=== PATIENT | male | born 1930 | race Caucasian/White ===

== ENCOUNTER 2017-09-04 14:32 | Inpatient (IN) | payer BC, OTHER ==
[2017-09-04 14:52] VITALS: BMI 30.4
--- NOTE | 2017-09-04 15:28 | PDOC ---
History of Present Illness - General History Source: Patient Exam Limitations: No Limitations - History of Present Illness Initial Comments: 09/04/17 15:39 The patient is a 87 year old male with a significant PMH of hypertension and non -insulin dependent diabetes who was brought via EMS to the emergency department with cough, generalized weakness, and one episode of vomit. As per EMS, the patient was seen at the doctor's office today for his persistent cough and was afebrile there. EMS reports the patient had one episode of non-bloody, non- bilious vomit when they were taking the patient home and decided to bring him to the ER instead. The patient has a rectal temp of 103 here in the ER. History is limited from patient. The patient denies chest pain, shortness of breath, headache and dizziness. Denies fever, chills, nausea, diarrhea and constipation. Denies dysuria, frequency, urgency and hematuria. Allergies: NKA Past surgical history: None reported. Social history: No reported alcohol, drug, or cigarette use. <Lina Martin - Last Filed: 09/04/17 18:19> - History of Present Illness Initial Comments: 09/04/17 19:03 87 years old past medical history significant for hypertension non-insulin dependent diabetes presents to the emergency department with fever tachycardia altered mental status Sepsis workup initiated reevaluation urinalysis grossly positive Reevaluation 6 PM patient became transiently hypotensive 30 mL/kg IV fluids ordered Antibiotic coverage broadened to Zosyn We will admit the [facility] on telemetry for further management. <Joseph Barclay - Last Filed: 09/04/17 19:04> - General Chief Complaint: Weakness Stated Complaint: WEAKNESS FLU SYMTOMS VOMITED ONCE Time Seen by Provider: 09/04/17 15:02 Past History <Lina Martin - Last Filed: 09/04/17 18:19> - Past Medical History Anemia: No Asthma: No Cancer: No Cardiac Disorders: Yes CVA: No COPD: No CHF: No Dementia: No Diabetes: Yes (7 YEARS, MEDS X 3 YEARS) GI Disorders: No Disorders: No HTN: Yes Hypercholesterolemia: No Liver Disease: No Seizures: No Thyroid Disease: No Other medical history: PROSTATE - Surgical History Abdominal Surgery: No Appendectomy: No Cardiac Surgery: No Cholecystectomy: No Lung Surgery: No Neurologic Surgery: No Orthopedic Surgery: No - Immunization History Immunization Up to Date: No - Suicide/Smoking/Psychosocial Hx Smoking Status: No Smoking History: Never smoked Have you smoked in the past 12 months: No Number of Cigarettes Smoked Daily: 0 Information on smoking cessation initiated: No Hx Alcohol Use: No Drug/Substance Use Hx: No Substance Use Type: None Hx Substance Use Treatment: No <Joseph Barclay - Last Filed: 09/04/17 19:04> - Past Medical History Allergies/Adverse Reactions: Allergies Allergy/AdvReac Type Severity Reaction Status Date / Time No Known Allergies Allergy Verified 09/04/17 14:34 Home Medications: Ambulatory Orders Amlodipine Besylate 10 mg PO DAILY 09/04/17 Carvedilol 6.25 mg PO BID 09/04/17 Metformin HCl 500 mg PO BID 09/04/17 Omeprazole 20 mg PO DAILY 09/04/17 Tamsulosin HCl 0.4 mg PO DAILY 09/04/17 Valsartan/Hydrochlorothiazide [Valsartan-Hctz 160-12.5 mg Tab] 1 each PO DAILY 09/04/17 Review of Systems - Review of Systems Able to Perform ROS?: Yes Comments:: 09/04/17 15:32 ROS: A complete review of 10 out of 10 review of systems is taken and is negative apart from what is previously mentioned below and in the HPI. <Lina Martin - Last Filed: 09/04/17 18:19> *Physical Exam - Vital Signs Last Vital Signs Temp Pulse Resp BP Pulse Ox 103 F H 118 H 20 126/103 96 09/04/17 14:33 09/04/17 14:33 09/04/17 14:33 09/04/17 14:33 09/04/17 14:33 - Physical Exam Comments: 09/04/17 15:33 Vitals: Triage vital signs reviewed General Appearance: No acute distress, well nourished, well developed Head: Atraumatic Eyes: Pupils equal reactive round, extraocular movement intact Ears: TM's normal bilaterally Nose: Nares patent bilaterally; no nasal congestion Throat: Posterior oropharynx without erythema, mucous membranes moist Neck: Supple; No nuchal rigidity Chest Wall: Nontender Cardiac: Regular rate and rhythm, no murmurs, no rubs, no gallops Lungs: Clear to auscultation bilateral, good air movement bilaterally Abdomen: Soft, nondistended, normal bowel sounds, nontender to palpation Extremities: Full range of motion to all extremities, no cyanosis, clubbing, or edema Skin: Warm and dry, no rashes or lesions, no rash, no petechiae Neuro: AOX3; Cranial Nerves 2-12 grossly intact, Strength intact to all extremities, Sensation intact to all extremities. Psych: Normal mood, normal affect <Lina Martin - Last Filed: 09/04/17 18:19> - Vital Signs Last Vital Signs Temp Pulse Resp BP Pulse Ox 103 F H 118 H 20 126/103 96 09/04/17 14:33 09/04/17 14:33 09/04/17 14:33 09/04/17 14:33 09/04/17 14:33 <Joseph Barclay - Last Filed: 09/04/17 19:04> ED Treatment Course - LABORATORY CBC & Chemistry Diagram: 09/04/17 16:10 09/04/17 16:10 <Lina Martin - Last Filed: 09/04/17 18:19> - LABORATORY CBC & Chemistry Diagram: 09/04/17 16:10 09/04/17 16:10 <Joseph Barclay - Last Filed: 09/04/17 19:04> *DC/Admit/Observation/Transfer - Attestations Scribe Attestion: 09/04/17 15:33 Documentation prepared by Lina Martin, acting as medical practice manager for Joseph Barclay MD. <Lina Martin - Last Filed: 09/04/17 18:19> - Discharge Dispostion Admit: Yes <Joseph Barclay - Last Filed: 09/04/17 19:04> Diagnosis at time of Disposition: Sepsis Qualifiers: Sepsis type: sepsis due to unspecified organism Qualified Code(s): A41.9 - Sepsis, unspecified organism UTI (urinary tract infection) Qualifiers: Urinary tract infection type: site unspecified Hematuria presence: without hematuria Qualified Code(s): N39.0 - Urinary tract infection, site not specified - Discharge Dispostion Condition at time of disposition: Fair
[2017-09-04 16:24] LABS: EOS % 0.1 % (0-4.5)
[2017-09-04 16:30] LABS: BASO % 0.2 % (0-2.0); HEMATOCRIT 33.1 % (35.4-49); HEMOGLOBIN 11.6 GM/dl (11.7-16.9); LYMPH % 4.2 % (8-40); MCH 30.5 pg (25.7-33.7); MEAN CELL VOLUME 87.1 fl (80-96); MEAN PLT VOLUME 8.4 fl (7.5-11.1); MONO % 4.6 % (3.8-10.2); NEUT % 90.9 % (42.8-82.8); PLATELET COUNT 224 K/MM3 (134-434); RDW 13.8 % (11.9-15.9); WHITE BLOOD COUNT 11.6 K/mm3 (4.0-10.8)
[2017-09-04] MEDS ORDERED: ACETAMINOPHEN 1000 MG/100 ML VIAL (NON FORMULARY) IVPB ONE (16:31)
[2017-09-04] MEDS ORDERED: SODIUM CHLORIDE 0.9% 500 ML INFUS.BAG IV ONE (16:31)
[2017-09-04] MEDS ORDERED: ACETAMINOPHEN INJECTION 100 ML IVPB ONE (16:35)
[2017-09-04 16:43] LABS: ALBUMIN 2.6 g/dl (3.5-5.0); ALK PHOS 105 U/L (32-92); ANION GAP 10 (8-16); BILIRUBIN,TOTAL 1.3 mg/dl (0.2-1.0); BLOOD UREA NITROGEN 26 mg/dl (7-18); CALCIUM 8.2 mg/dl (8.4-10.2); CHLORIDE 98 mmol/L (98-107); CO2 21 mmol/L (22-28); CREATININE 1.2 mg/dl (0.6-1.3); GLUCOSE,RANDOM 214 mg/dl (74-106); POTASSIUM 3.6 mmol/L (3.5-5.1); SGOT/AST 18 U/L (10-42); SGPT/ALT 17 U/L (10-40); SODIUM 129 mmol/L (136-145); TOT PROT 6.8 g/dl (6.4-8.3)
[2017-09-04 17:09] LABS: PH,URINE 5.5 (4.5-8); URINE BILIRUBIN Negative (NEGATIVE); URINE GLUCOSE (UA) Negative (NEGATIVE); URINE KETONE Negative (NEGATIVE); URINE NITRITE Negative (NEGATIVE); URINE UROBILINOGEN 0.2 (0.2-1.0)
[2017-09-04 17:10] LABS: ACTIVATED PTT 25.4 SECONDS (24.0-38.9)
[2017-09-04 17:10] LABS: URINE APPEARANCE SL CLOUDY; URINE BLOOD 3+ (NEGATIVE); URINE COLOR YELLOW; URINE LEUK ESTERASE 2+ (NEGATIVE); URINE PROTEIN 1+ (NEGATIVE)
[2017-09-04 17:15] LABS: INR 1.25 (0.82-1.09); PROTHROMBIN TIME (PATIENT) 13.9 SEC (10.2-13.0)
[2017-09-04 17:24] LABS: EPI CELLS MODERATE /HPF; URINE RBC 40-60 /hpf (0-3); URINE WBC 40-60 (0-2)
[2017-09-04 17:25] LABS: AMORP URATES FEW /hpf (NONE SEEN); URINE BACTERIA MODERATE /hpf (NEGATIVE)
[2017-09-04 17:28] LABS: VENOUS PC02 33.1 mmHg (38-52); VENOUS PH 7.49 (7.32-7.42)
[2017-09-04] MEDS ORDERED: AZITHROMYCIN IVPB 500 MG in DEXTROSE 5%-WATER - 250 ML IVPB ONE (17:42)
[2017-09-04] MEDS ORDERED: AZITHROMYCIN 500 MG VIAL IVPB ONE (17:54)
[2017-09-04] MEDS ORDERED: PIPERACILLIN/TAZOBACTAM 4.5 GM VIAL IVPB ONE ×2 (18:12→18:38)
[2017-09-04] MEDS ORDERED: SODIUM CHLORIDE 0.9% 1000 ML INFUS.BAG IV STA (18:12)
[2017-09-04] MEDS ORDERED: LIDOCAINE HCL 2% (20ML MULTI-DOSE VIAL) NR ONE (21:26)
[2017-09-04 22:14] LABS: HEMOGLOBIN 10.1 GM/dl (11.7-16.9); MCH 31.1 pg (25.7-33.7); MCHC 35.9 g/dl (32.0-35.9); MEAN CELL VOLUME 86.7 fl (80-96); MEAN PLT VOLUME 8.9 fl (7.5-11.1); PLATELET COUNT 142 K/MM3 (134-434); RBC 3.23 M/mm3 (4.00-5.60); RDW 13.5 % (11.9-15.9); WHITE BLOOD COUNT 12.4 K/mm3 (4.0-10.8)
[2017-09-04] MEDS ORDERED: NOREPINEPHRINE BITARTRATE 4 MG/4 ML ML IV ONE ×2 (22:28→22:41)
[2017-09-04] MEDS: NOREPINEPHRINE BITARTRATE 8,000 MCG in DEXTROSE 5%-WATER - 492 ML IV ONE ×2 (22:30→22:45)
--- NOTE | 2017-09-04 23:14 | PDOC ---
History of Present Illness - General Chief Complaint: Weakness Stated Complaint: WEAKNESS FLU SYMTOMS VOMITED ONCE Time Seen by Provider: 09/04/17 15:02 Past History - Past Medical History Allergies/Adverse Reactions: Allergies Allergy/AdvReac Type Severity Reaction Status Date / Time No Known Allergies Allergy Verified 09/04/17 14:34 Home Medications: Ambulatory Orders Amlodipine Besylate 10 mg PO DAILY 09/04/17 Carvedilol 6.25 mg PO BID 09/04/17 Metformin HCl 500 mg PO BID 09/04/17 Omeprazole 20 mg PO DAILY 09/04/17 Tamsulosin HCl 0.4 mg PO DAILY 09/04/17 Valsartan/Hydrochlorothiazide [Valsartan-Hctz 160-12.5 mg Tab] 1 each PO DAILY 09/04/17 Anemia: No Asthma: No Cancer: No Cardiac Disorders: Yes CVA: No COPD: No CHF: No Dementia: No Diabetes: Yes (7 YEARS, MEDS X 3 YEARS) GI Disorders: No Disorders: No HTN: Yes Hypercholesterolemia: No Liver Disease: No Seizures: No Thyroid Disease: No Other medical history: PROSTATE - Surgical History Abdominal Surgery: No Appendectomy: No Cardiac Surgery: No Cholecystectomy: No Lung Surgery: No Neurologic Surgery: No Orthopedic Surgery: No - Immunization History Immunization Up to Date: No - Suicide/Smoking/Psychosocial Hx Smoking Status: No Smoking History: Never smoked Have you smoked in the past 12 months: No Number of Cigarettes Smoked Daily: 0 Information on smoking cessation initiated: No Hx Alcohol Use: No Drug/Substance Use Hx: No Substance Use Type: None Hx Substance Use Treatment: No *Physical Exam - Vital Signs Last Vital Signs Temp Pulse Resp BP Pulse Ox 98.1 F 90 24 91/66 100 09/04/17 21:18 09/04/17 23:07 09/04/17 23:07 09/04/17 23:07 09/04/17 23:07 Procedures - Consent Consent obtained: Written, From Patient - Central Line Central Line Lumen: triple Central Line Position: internal jugular (R) Anesthesia: 2% Lidocaine Amount of anesthesia (ccs): 6 Complications: none Post Central Line Insertion: sutured, good blood return, position confirmed w/ CXR ED Treatment Course - LABORATORY CBC & Chemistry Diagram: 09/04/17 21:45 09/04/17 16:10 - ADDITIONAL ORDERS Additional order review: Laboratory Results 09/04/17 09/04/17 09/04/17 16:20 16:10 16:10 PT with INR INR PTT (Actin FS) VBG pH POC VBG pCO2 POC VBG pO2 Mixed VBG HCO3 Sodium Potassium Chloride Carbon Dioxide Anion Gap BUN Creatinine Creat Clearance w eGFR Random Glucose Lactic Acid 1.9 Cancelled Calcium Total Bilirubin AST ALT Alkaline Phosphatase Troponin I Total Protein Albumin Urine Color Yellow Urine Appearance Sl cloudy Urine pH 5.5 Ur Specific [place] 1.015 Urine Protein 1+ H Urine Glucose (UA) Negative Urine Ketones Negative Urine Blood 3+ H Urine Nitrite Negative Urine Bilirubin Negative Urine Urobilinogen 0.2 Ur Leukocyte Esterase 2+ H Urine RBC 40-60 Urine WBC 40-60 Ur Epithelial Cells Moderate Amorphous Urates Few Urine Bacteria Moderate 09/04/17 09/04/17 09/04/17 16:10 16:10 16:10 PT with INR 13.9 H INR 1.25 H PTT (Actin FS) 25.4 L VBG pH 7.49 H POC VBG pCO2 33.1 L POC VBG pO2 97.0 H Mixed VBG HCO3 24.8 Sodium 129 L Potassium 3.6 Chloride 98 Carbon Dioxide 21 L Anion Gap 10 BUN 26 H Creatinine 1.2 Creat Clearance w eGFR 57.41 Random Glucose 214 H Lactic Acid Calcium 8.2 L Total Bilirubin 1.3 H AST 18 ALT 17 Alkaline Phosphatase 105 H Troponin I Total Protein 6.8 Albumin 2.6 L Urine Color Urine Appearance Urine pH Ur Specific [place] Urine Protein Urine Glucose (UA) Urine Ketones Urine Blood Urine Nitrite Urine Bilirubin Urine Urobilinogen Ur Leukocyte Esterase Urine RBC Urine WBC Ur Epithelial Cells Amorphous Urates Urine Bacteria 09/04/17 15:35 PT with INR INR PTT (Actin FS) VBG pH POC VBG pCO2 POC VBG pO2 Mixed VBG HCO3 Sodium Potassium Chloride Carbon Dioxide Anion Gap BUN Creatinine Creat Clearance w eGFR Random Glucose Lactic Acid Calcium Total Bilirubin AST ALT Alkaline Phosphatase Troponin I 0.01 Total Protein Albumin Urine Color Urine Appearance Urine pH Ur Specific [place] Urine Protein Urine Glucose (UA) Urine Ketones Urine Blood Urine Nitrite Urine Bilirubin Urine Urobilinogen Ur Leukocyte Esterase Urine RBC Urine WBC Ur Epithelial Cells Amorphous Urates Urine Bacteria 09/04/17 09/04/17 21:45 16:10 RBC 3.23 L 3.80 L MCV 86.7 87.1 MCHC 35.9 35.0 RDW 13.5 13.8 MPV 8.9 8.4 Neutrophils % 90.9 H Lymphocytes % 4.2 L Monocytes % 4.6 Eosinophils % 0.1 Basophils % 0.2 - RADIOLOGY Radiology Studies Ordered: Category Date Time Status CHEST X-RAY PORTABLE* [RAD] Stat Radiology 09/04/17 21:54 Completed - Medications Given in the ED: ED Medications Discontinued Medications Generic Name Dose Route Start Last Admin Trade Name Freq PRN Reason Stop Dose Admin Acetaminophen 1,000 mg 09/04/17 16:31 09/04/17 16:39 Ofirmev Injection - IVPB 09/04/17 16:32 1,000 mg ONCE ONE Administration Azithromycin 500 mg/ Dextrose 250 mls @ 250 mls/hr 09/04/17 17:42 09/04/17 18 :00 IVPB 09/04/17 18:41 250 mls/hr ONCE ONE Administration Piperacillin Sod/Tazobactam Sod 4.5 gm 09/04/17 18:12 09/04/17 19:09 Zosyn - IVPB 09/04/17 18:13 4.5 gm ONCE ONE Administration Sodium Chloride 1,000 ml 09/04/17 16:31 09/04/17 16:34 Normal Saline - IV 09/04/17 16:32 1,000 ml ONCE ONE Administration Sodium Chloride 2,722 ml 09/04/17 18:12 09/04/17 18:33 Normal Saline - 30 ml/kg (2722 ml) 09/04/17 18:13 2,722 ml IV Administration ONCE STA Medical Decision Making - Critical Care Time Total Critical Care Time (minutes): 90 Critical Care Statement: The care of this patient involved high complexity decision making to prevent further life threatening deterioration of the patient 's condition and/or to evaluate & treat vital organ system(s) failure or risk of failure. - Medical Decision Making 09/04/17 23:51 Received on signout. Chart review. 3lNS with persistently low BP. IVC plump. Add vanco. R IJ placed without complications, US guided. D/w [facility] of medicine and [facility] CCM. *DC/Admit/Observation/Transfer Diagnosis at time of Disposition: Sepsis Qualifiers: Sepsis type: sepsis due to unspecified organism Qualified Code(s): A41.9 - Sepsis, unspecified organism UTI (urinary tract infection) Qualifiers: Urinary tract infection type: site unspecified Hematuria presence: without hematuria Qualified Code(s): N39.0 - Urinary tract infection, site not specified - Discharge Dispostion Condition at time of disposition: Fair Admit: Yes - Referrals - Patient Instructions - Post Discharge Activity
--- NOTE | 2017-09-05 03:18 | CONSULT ---
Consult Consult Specialty:: CCM Referred by:: Ning Reason for Consultation:: Severe Sepsis - History of Present Illness Chief Complaint: dysuria, weakness History of Present Illness: Briefly Mr Byrd is a very pleasant 87 yo man with PMHx of HTN, NIDDM, BPH with recent hx of influenza and increased urinary symptoms of urgency and difficulty with micturation in last few weeks who presented to ED today with fever, hypotension and + UA c/w urosepsis. Pt lives at home with spouse and one of his 5 children. He is still working and independent in [employer]. In last 48hrs he relates significant fatigue and required his son to " drag him to bathroom". He went to PMD office, was hypotensive but afebrile. PMD called in a script for abx and sent him home. Pt however was becoming progressively weaker and came to ED via EMS instead. In ED pt was febrile to 103, hypotensive with SBP raul in 70s. He was fluid resuscitated, hendricks cxl and started on Pip/Kartki. Labs notable for + UA with 40-50 wbc +LE. White count was 12k Neut predominant, Na of 129. Lactate and troponin were negative. Tbili slightly elevated at 1.3. Pt initially responsive to fluid but with SBP drops into 80s. RIJ TLC was placed and levophed was started. Transferred from [facility] to [facility] for further care. Dose of Vancomycin given prior to transfer. - History Source History Provided By: Patient, Medical Record Limitations to Obtaining History: Poor Historian - Past Medical History Cardio/Vascular: Yes: HTN Renal/: Yes: BPH, UTI Endocrine: Yes: Diabetes Mellitus (NIDM) - Past Surgical History Past Surgical History: Yes: None - Alcohol/Substance Use Hx Alcohol Use: No History of Substance Use: reports: None - Smoking History Smoking history: Never smoked Have you smoked in the past 12 months: No Aproximately how many cigarettes per day: 0 - Social History Usual Living Arrangement: With Spouse ADL: Independent History of Recent Travel: No Home Medications - Allergies Allergies/Adverse Reactions: Allergies Allergy/AdvReac Type Severity Reaction Status Date / Time No Known Allergies Allergy Verified 09/04/17 14:34 - Home Medications Home Medications: Ambulatory Orders Amlodipine Besylate 10 mg PO DAILY 09/04/17 Carvedilol 6.25 mg PO BID 09/04/17 Metformin HCl 500 mg PO BID 09/04/17 Omeprazole 20 mg PO DAILY 09/04/17 Tamsulosin HCl 0.4 mg PO DAILY 09/04/17 Valsartan/Hydrochlorothiazide [Valsartan-Hctz 160-12.5 mg Tab] 1 each PO DAILY 09/04/17 Family Disease History - Family Disease History Family History: Unremarkable Review of Systems Findings/Remarks: 10 pt review negative except as per HPI Physical Exam Vital Signs: Vital Signs Temperature 98.1 F 09/04/17 21:18 Pulse Rate 83 09/05/17 01:54 Respiratory Rate 17 09/05/17 01:54 Blood Pressure 95/58 09/05/17 01:54 O2 Sat by Pulse Oximetry (%) 100 09/05/17 01:54 Constitutional: Yes: Well Nourished, No Distress, Calm Eyes: Yes: Conjunctiva Clear, EOM Intact, PERRL HENT: Yes: Atraumatic, Normocephalic. No: Nasal Congestion, Rhinnorhea Neck: Yes: Supple, Trachea Midline. No: Lymphadenopathy Cardiovascular: Yes: Regular Rate and Rhythm, S1, S2. No: Murmur Respiratory: Yes: Regular, CTA Bilaterally. No: Accessory Muscle Use Gastrointestinal: Yes: Normal Bowel Sounds, Soft ...Rectal Exam: Yes: Deferred Renal/: Yes: WNL. No: Urethral Discharge Breast(s): Yes: WNL Musculoskeletal: Yes: WNL Edema: LLE: Trace, RLE: Trace Peripheral Pulses WNL: Yes Integumentary: Yes: WNL Neurological: Yes: WNL, Alert, Oriented, Cran Nerves II-XII Intact ...Motor Strength: WNL Psychiatric: Yes: WNL, Alert, Oriented Labs: CBC, BMP 09/04/17 21:45 09/04/17 16:10 Imaging - Results Chest X-ray: Report Reviewed, Image Reviewed EKG: Image Reviewed (Sinus tach, 1st degree AV bloock, TW flattening in V1-2. intervals WNL otherwise. Occ pvc) Problem List - Problems (1) Sepsis Code(s): A41.9 - SEPSIS, UNSPECIFIED ORGANISM Qualifiers: Sepsis type: sepsis due to unspecified organism Qualified Code(s): A41.9 - Sepsis, unspecified organism (2) UTI (urinary tract infection) Code(s): N39.0 - URINARY TRACT INFECTION, SITE NOT SPECIFIED Qualifiers: Urinary tract infection type: site unspecified Hematuria presence: without hematuria Qualified Code(s): N39.0 - Urinary tract infection, site not specified Assessment/Plan PULM/CCM seen and examined in ICU A/ 87 y/o man with hx of BPH, HTN, IDDM now with UTI and severe sepsis P/ -cont P/T, Vanco--> ID to see, likely only needs ceftriaxone as no recent hospitalization or hx of MDR -cont fluid resus, can check CVP, goal 8-12 -hold all anti-htn -FS and tight glucose control -diabetic diet -SQH for DVT -no indication for GI proph -cont ICU care until off vasopressor William Knutson ACN [id number] Critical Care Time/MDM Note Total Critical Care Time: 35 Critical Care Statement: The care of this patient involved high complexity decision making to prevent further life threatening deterioration of the patient 's condition and/or to evaluate & treat vital organ system(s) failure or risk of failure.
[2017-09-05] MEDS ORDERED: LACTATED RINGERS SOLUTION 1000 ML INFUS.BAG IV ONE (03:49)
--- NOTE | 2017-09-05 03:52 | HP ---
CHIEF COMPLAINT: urinary frequency PCP: HISTORY OF PRESENT ILLNESS: The patient is an 87 yo m w/ PMH Diabetes, HTN, CAD, BPH who comes into the ED c /o urinary frequency. Patient has had increased urinary frequency for the past 2 weeks and states that he has been unable to void completely once he goes to the bathroom. The patient's symptoms gradually worsened and became associated with generalized weakness, causing his to see his doctor, who prescribed him a PO antibiotic and noticed that his blood pressure was low. 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 In the ER, he was noted to have a rectal temp to 103. He became progressively hypotensive despite fluid resuscitation, requiring norepinephrine to sustain his blood pressure. ER course was notable for: (1) WBC 12.4, LA 1.9 (2) Cr 1.2 (3) Recent Travel: none PAST MEDICAL HISTORY: diabetes HTN CAD PAST SURGICAL HISTORY: none Social History: Smoking: denies Alcohol: denies Drugs: denies Family History: Non-contributory Allergies No Known Allergies Allergy (Verified 09/04/17 14:34) HOME MEDICATIONS: Home Medications Medication Instructions Recorded Amlodipine Besylate 10 mg PO DAILY 09/04/17 Carvedilol 6.25 mg PO BID 09/04/17 Metformin HCl 500 mg PO BID 09/04/17 Omeprazole 20 mg PO DAILY 09/04/17 Tamsulosin HCl 0.4 mg PO DAILY 09/04/17 Valsartan/Hydrochlorothiazide 1 each PO DAILY 09/04/17 [Valsartan-Hctz 160-12.5 mg Tab] REVIEW OF SYSTEMS CONSTITUTIONAL: Absent: fever, chills, diaphoresis, generalized weakness, malaise, loss of appetite, weight change HEENT: Absent: rhinorrhea, nasal congestion, throat pain, throat swelling, difficulty swallowing, mouth swelling, ear pain, eye pain, visual changes CARDIOVASCULAR: Absent: chest pain, syncope, palpitations, irregular heart rate, lightheadedness , peripheral edema RESPIRATORY: Absent: cough, shortness of breath, dyspnea with exertion, orthopnea, wheezing, stridor, hemoptysis GASTROINTESTINAL: Absent: abdominal pain, abdominal distension, nausea, vomiting, diarrhea, constipation, melena, hematochezia GENITOURINARY: Absent: dysuria, frequency, urgency, hesitancy, hematuria, flank pain, genital pain MUSCULOSKELETAL: Absent: myalgia, arthralgia, joint swelling, back pain, neck pain SKIN: Absent: rash, itching, pallor HEMATOLOGIC/IMMUNOLOGIC: Absent: easy bleeding, easy bruising, lymphadenopathy, frequent infections ENDOCRINE: Absent: unexplained weight gain, unexplained weight loss, heat intolerance, cold intolerance NEUROLOGIC: Absent: headache, focal weakness or paresthesias, dizziness, unsteady gait, seizure, mental status changes, bladder or bowel incontinence PSYCHIATRIC: Absent: anxiety, depression, suicidal or homicidal ideation, hallucinations. PHYSICAL EXAMINATION Vital Signs - 24 hr 09/04/17 09/04/17 09/04/17 14:33 15:45 16:22 Temperature 103 F H Pulse Rate 118 H Pulse Rate [ Apical] Pulse Rate [ 114 H 113 H Left Radial] Respiratory 20 24 20 Rate Blood Pressure 126/103 Blood Pressure [Left Arm] Blood Pressure 120/72 140/53 [Right Arm] O2 Sat by Pulse 96 98 Oximetry (%) 09/04/17 09/04/17 09/04/17 17:30 18:30 18:35 Temperature 101.2 F H Pulse Rate 86 Pulse Rate [ Apical] Pulse Rate [ 93 H 100 H Left Radial] Respiratory 22 20 20 Rate Blood Pressure 84/54 Blood Pressure [Left Arm] Blood Pressure 98/51 80/50 [Right Arm] O2 Sat by Pulse 97 100 100 Oximetry (%) 09/04/17 09/04/17 09/04/17 18:45 19:54 21:03 Temperature Pulse Rate Pulse Rate [ Apical] Pulse Rate [ 87 79 100 H Left Radial] Respiratory 20 20 18 Rate Blood Pressure Blood Pressure [Left Arm] Blood Pressure 83/50 73/46 81/54 [Right Arm] O2 Sat by Pulse 100 100 100 Oximetry (%) 09/04/17 09/04/17 09/04/17 21:18 22:06 22:30 Temperature 98.1 F Pulse Rate 85 Pulse Rate [ 82 Apical] Pulse Rate [ Left Radial] Respiratory 14 Rate Blood Pressure 62/46 Blood Pressure [Left Arm] Blood Pressure 90/58 [Right Arm] O2 Sat by Pulse 99 Oximetry (%) 09/04/17 09/04/17 09/04/17 22:45 23:07 23:22 Temperature Pulse Rate 78 Pulse Rate [ 90 76 Apical] Pulse Rate [ Left Radial] Respiratory 24 18 Rate Blood Pressure 80/42 Blood Pressure [Left Arm] Blood Pressure 91/66 98/64 [Right Arm] O2 Sat by Pulse 100 100 Oximetry (%) 09/05/17 09/05/17 09/05/17 00:26 01:00 01:54 Temperature Pulse Rate 74 Pulse Rate [ 71 73 83 Apical] Pulse Rate [ 78 Left Radial] Respiratory 17 21 17 Rate Blood Pressure 77/48 Blood Pressure 93/57 95/58 [Left Arm] Blood Pressure 77/48 [Right Arm] O2 Sat by Pulse 100 100 100 Oximetry (%) 09/05/17 03:01 Temperature 98.2 F Pulse Rate 96 H Pulse Rate [ Apical] Pulse Rate [ Left Radial] Respiratory 20 Rate Blood Pressure 99/55 Blood Pressure [Left Arm] Blood Pressure [Right Arm] O2 Sat by Pulse 100 Oximetry (%) GENERAL: Awake, alert, and fully oriented, in no acute distress. HEAD: Normal with no signs of trauma. EYES: Pupils equal, round and reactive to light, extraocular movements intact, sclera anicteric, conjunctiva clear. No lid lag. EARS, NOSE, THROAT: Ears normal, nares patent, oropharynx clear without exudates. Moist mucous membranes. NECK: Normal range of motion, supple without lymphadenopathy, JVD, or masses. LUNGS: Breath sounds equal, clear to auscultation bilaterally. No wheezes, and no crackles. No accessory muscle use. HEART: Regular rate and rhythm, normal S1 and S2 without murmur, rub or gallop. ABDOMEN: Soft, nontender, not distended, normoactive bowel sounds, no guarding, no rebound, no masses. No hepatomegaly or splenomegaly. LOWER EXTREMITIES: 2+ pulses, warm, well-perfused. No calf tenderness. No peripheral edema. NEUROLOGICAL: Cranial nerves II-X intact. Normal speech. Normal gait. PSYCHIATRIC: Cooperative. Good eye contact. Appropriate mood and affect. SKIN: Warm, dry, normal turgor, no rashes or lesions noted, normal capillary refill. Laboratory Results - last 24 hr 09/04/17 09/04/17 09/04/17 15:35 16:10 16:10 WBC 11.6 H RBC 3.80 L Hgb 11.6 L Hct 33.1 L MCV 87.1 MCH 30.5 MCHC 35.0 RDW 13.8 Plt Count 224 MPV 8.4 Neutrophils % 90.9 H Lymphocytes % 4.2 L Monocytes % 4.6 Eosinophils % 0.1 Basophils % 0.2 PT with INR 13.9 H INR 1.25 H PTT (Actin FS) 25.4 L VBG pH POC VBG pCO2 POC VBG pO2 Mixed VBG HCO3 Sodium Potassium Chloride Carbon Dioxide Anion Gap BUN Creatinine Creat Clearance w eGFR Random Glucose Lactic Acid Calcium Total Bilirubin AST ALT Alkaline Phosphatase Troponin I 0.01 Total Protein Albumin Urine Color Urine Appearance Urine pH Ur Specific [place] Urine Protein Urine Glucose (UA) Urine Ketones Urine Blood Urine Nitrite Urine Bilirubin Urine Urobilinogen Ur Leukocyte Esterase Urine RBC Urine WBC Ur Epithelial Cells Amorphous Urates Urine Bacteria 09/04/17 09/04/17 09/04/17 16:10 16:10 16:10 WBC RBC Hgb Hct MCV MCH MCHC RDW Plt Count MPV Neutrophils % Lymphocytes % Monocytes % Eosinophils % Basophils % PT with INR INR PTT (Actin FS) VBG pH 7.49 H POC VBG pCO2 33.1 L POC VBG pO2 97.0 H Mixed VBG HCO3 24.8 Sodium 129 L Potassium 3.6 Chloride 98 Carbon Dioxide 21 L Anion Gap 10 BUN 26 H Creatinine 1.2 Creat Clearance w eGFR 57.41 Random Glucose 214 H Lactic Acid Cancelled Calcium 8.2 L Total Bilirubin 1.3 H AST 18 ALT 17 Alkaline Phosphatase 105 H Troponin I Total Protein 6.8 Albumin 2.6 L Urine Color Urine Appearance Urine pH Ur Specific [place] Urine Protein Urine Glucose (UA) Urine Ketones Urine Blood Urine Nitrite Urine Bilirubin Urine Urobilinogen Ur Leukocyte Esterase Urine RBC Urine WBC Ur Epithelial Cells Amorphous Urates Urine Bacteria 09/04/17 09/04/17 09/04/17 16:10 16:20 21:45 WBC 12.4 H RBC 3.23 L Hgb 10.1 L D Hct 28.0 L D MCV 86.7 MCH 31.1 MCHC 35.9 RDW 13.5 Plt Count 142 D MPV 8.9 Neutrophils % Lymphocytes % Monocytes % Eosinophils % Basophils % PT with INR INR PTT (Actin FS) VBG pH POC VBG pCO2 POC VBG pO2 Mixed VBG HCO3 Sodium Potassium Chloride Carbon Dioxide Anion Gap BUN Creatinine Creat Clearance w eGFR Random Glucose Lactic Acid 1.9 Calcium Total Bilirubin AST ALT Alkaline Phosphatase Troponin I Total Protein Albumin Urine Color Yellow Urine Appearance Sl cloudy Urine pH 5.5 Ur Specific [place] 1.015 Urine Protein 1+ H Urine Glucose (UA) Negative Urine Ketones Negative Urine Blood 3+ H Urine Nitrite Negative Urine Bilirubin Negative Urine Urobilinogen 0.2 Ur Leukocyte Esterase 2+ H Urine RBC 40-60 Urine WBC 40-60 Ur Epithelial Cells Moderate Amorphous Urates Few Urine Bacteria Moderate 09/04/17 22:20 WBC RBC Hgb Hct MCV MCH MCHC RDW Plt Count MPV Neutrophils % Lymphocytes % Monocytes % Eosinophils % Basophils % PT with INR INR PTT (Actin FS) VBG pH POC VBG pCO2 POC VBG pO2 Mixed VBG HCO3 Sodium Potassium Chloride Carbon Dioxide Anion Gap BUN Creatinine Creat Clearance w eGFR Random Glucose Lactic Acid 1.1 Calcium Total Bilirubin AST ALT Alkaline Phosphatase Troponin I Total Protein Albumin Urine Color Urine Appearance Urine pH Ur Specific [place] Urine Protein Urine Glucose (UA) Urine Ketones Urine Blood Urine Nitrite Urine Bilirubin Urine Urobilinogen Ur Leukocyte Esterase Urine RBC Urine WBC Ur Epithelial Cells Amorphous Urates Urine Bacteria ASSESSMENT/PLAN: The patient is an 87 yo f w/ PMH HTN, DM, CAD, BPH who is being admitted septic shock #Septic shock likely 2/2 UTI -s/p Zosyn, vanco in ED -c/w zosyn -ID consult -renal/ bladder US -RUQ us r/o hepatobiliary source -c/w home flomax -norepi @ 4 -insert marcelino -monitor BP #Diabetes -BGM ACHS -ISS ACHS #HTN -hold antihypotensives #FEN -no fluids indicated -lytes WNL -diabetic diet #Prophy -Hep SQ 5ku TID #Dispo -admit to ICU Visit type - Emergency Visit Emergency Visit: Yes ED Registration Date: 09/05/17 Care time: The patient presented to the Emergency Department on the above date and was hospitalized for further evaluation of their emergent condition. - New Patient This patient is new to me today: Yes Date on this admission: 09/05/17 - Critical Care Critical Care patient: Yes Total Critical Care Time (in minutes): 40 Critical Care Statement: The care of this patient involved high complexity decision making to prevent further life threatening deterioration of the patient 's condition and/or to evaluate & treat vital organ system(s) failure or risk of failure. Hospitalist Screening - Colonoscopy Questionnaire Colonoscopy Questionnaire: Colonoscopy Questionnaire - Patient: 50 - 75 years old and never had a screening colonoscopy: Unknown History of colon or rectal polyps, or CA: Unknown History of IBD, Crohn's disease or UC: Unknown History of abdominal radiation therapy as a child: Unknown - Relative: 1 with colon or rectal CA, or polyps at age 60 or younger: Unknown Colon or rectal CA diagnosed at age 45 or younger: Unknown Multiple relatives with colon or rectal CA: Unknown - Outcome: Screening Result: Negative Screen
[2017-09-05] MEDS ORDERED: PIPERACILLIN/TAZOB 3.375 GM/50 ML PRE-DOCKED IVPB STA (05:06)
[2017-09-05] MEDS ORDERED: PIPERACILLIN/TAZOB 3.375 GM 3.375 GM in DEXTROSE 5%-WATER - 50 ML IVPB ONE (05:45)
[2017-09-05] MEDS: HEPARIN NA (PORCINE) 5,000 UNITS/ML 1ML VIAL SQ SCH ×3 (06:09→21:57)
[2017-09-05] MEDS: INSULIN SLIDING SCALE (NOVOLOG) 1 VIAL SQ SCH ×4 (06:10→22:01)
--- NOTE | 2017-09-05 06:27 | PN ---
Teaching Attending Note Name of Resident: Bryan Shearer ATTENDING PHYSICIAN STATEMENT I saw and evaluated the patient. Chart, data, imaging reviewed. I reviewed the resident's note and discussed the case with the resident. I agree with the resident's findings and plan as documented. SUBJECTIVE: 87 yo man with PMHx of HTN, NIDDM, BPH with recent hx of influenza and increased urinary symptoms of urgency and difficulty with micturation in last few weeks who presented to ED with weakness, fever, urinary hesitation. Patient was seen in PMD office and given script for PO antibiotic just prior to presenting to ER but did not take antibiotic. In [facility] ER, patient given IV bolus fluid resuscitation but did not respond so right IJ central line was placed, started on levophed and transferred to ICU [facility] [place]. Urine , blood cx drawn, vancomycin, zosyn were given empirically. OBJECTIVE: Last Vital Signs Temp Pulse Resp BP Pulse Ox 98.2 F 98 H 20 111/48 100 09/05/17 03:01 09/05/17 04:00 09/05/17 04:00 09/05/17 04:00 09/05/17 03:01 general- nad, aaox3, no resp distress heent -moist oral mucosa, no sinus tenderness neck -supple, no jvd cv -s1+s2+ rrr chest- cta b/l abdomen- soft, nt, BS+ skin- no rashes noted Abnormal Lab Results 09/04/17 09/04/17 09/04/17 16:10 16:10 16:10 WBC 11.6 H RBC 3.80 L Hgb 11.6 L Hct 33.1 L Neutrophils % 90.9 H Lymphocytes % 4.2 L PT with INR 13.9 H INR 1.25 H PTT (Actin FS) 25.4 L VBG pH 7.49 H POC VBG pCO2 33.1 L POC VBG pO2 97.0 H Sodium Carbon Dioxide BUN Random Glucose Calcium Total Bilirubin Alkaline Phosphatase Albumin Urine Protein Urine Blood Ur Leukocyte Esterase 09/04/17 09/04/17 09/04/17 16:10 16:20 21:45 WBC 12.4 H RBC 3.23 L Hgb 10.1 L D Hct 28.0 L D Neutrophils % Lymphocytes % PT with INR INR PTT (Actin FS) VBG pH POC VBG pCO2 POC VBG pO2 Sodium 129 L Carbon Dioxide 21 L BUN 26 H Random Glucose 214 H Calcium 8.2 L Total Bilirubin 1.3 H Alkaline Phosphatase 105 H Albumin 2.6 L Urine Protein 1+ H Urine Blood 3+ H Ur Leukocyte Esterase 2+ H ASSESSMENT AND PLAN: #87yo man with septic shock secondary to UTI requiring pressor support with levophed. On empiric antibiotic therapy with vancomycin and pip/tazo. Likely BPH contributing to sepsis. Lactate was wnl. Tbili and alk phos were elevated and biliary source infection should also be ruled out although less likely. -f/u blood and urine cultures -marcelino catheter placement -monitor i/o -continue zosyn 3.375g IV q6hrs -continue pressor support -Hepatobiliary U/S -renal/bladder U/S -ID consult -continue flomax for bph -DVT ppx- heparin sc #diet - 2g Na diet
[2017-09-05 06:31] LABS: BASO % 0.2 % (0-2.0); HEMATOCRIT 27.1 % (35.4-49); HEMOGLOBIN 9.3 GM/dL (11.7-16.9); LYMPH % 15.2 % (8-40); MCH 30.3 pg (25.7-33.7); MCHC 34.3 g/dl (32.0-35.9); MEAN CELL VOLUME 88.3 fl (80-96); MEAN PLT VOLUME 8.6 fl (7.5-11.1); MONO % 10.3 % (3.8-10.2); NEUT % 73.3 % (42.8-82.8); PLATELET COUNT 207 K/MM3 (134-434); RBC 3.07 M/mm3 (4.00-5.60); RDW 14.5 % (11.9-15.9); WHITE BLOOD COUNT 10.3 K/mm3 (4.0-10.0)
[2017-09-05 06:47] LABS: INR 1.17 (0.82-1.09); PROTHROMBIN TIME (PATIENT) 13.2 SEC (9.98-11.88)
[2017-09-05 07:02] LABS: ALBUMIN 1.8 g/dl (3.4-5.0); ANION GAP 9 (8-16); BLOOD UREA NITROGEN 22 mg/dL (7-18); CALCIUM 7.1 mg/dL (8.5-10.1); CHLORIDE 105 mmol/L (98-107); CO2 24 mmol/L (21-32); CREATININE 1.1 mg/dL (0.7-1.3); GLUCOSE,RANDOM 153 mg/dL (74-106); MAGNESIUM 1.8 mg/dL (1.8-2.4); PHOSPHOROUS 2.7 mg/dL (2.5-4.9); POTASSIUM 3.5 mmol/L (3.5-5.1); SGOT/AST 18 U/L (15-37); SGPT/ALT 15 U/L (12-78); SODIUM 138 mmol/L (136-145)
[2017-09-05 07:04] LABS: ALK PHOS 87 U/L (45-117); BILIRUBIN,TOTAL 0.8 mg/dL (0.2-1.0); TOT PROT 5.5 g/dl (6.4-8.2)
--- NOTE | 2017-09-05 08:17 | PN ---
Physical Exam: SUBJECTIVE: Briefly 87yo M with hx of HTN, Type 2 DM, BPH and recent flu illness presented to the hospital with reports of increased urinary frequency and difficulty initiating voiding found to have a UTI. Pt was feverish up to 103 and hypotensive on initial presentation at [facility] which was refractory to fluid resuscitation with 3L NS. Pt had R IJ placed and was started on Levophed. Pt has a and also lives with one of his children. At baseline patient is independent with ADLs. Pt prior to ER admission went to PMD and was given home antibiotics and had his home BP medications held. Pt had one episode of vomiting and then EMS was called. Currently pt has been off pressors for about 2 hours and is doing well. He denies any fever/chills since admission, nausea/vomiting, SOB, CP/discomfort, palpitations, abdominal pain, suprapubic pain, back pain. OBJECTIVE: Vital Signs Period Temp Pulse Resp BP Sys/Case Pulse Ox Last 24 Hr 98.1 F-103 F 71-118 14-24 62-140/42-103 96-100 GENERAL: NAD, awake, alert, oriented x3, on NC HEENT: NC/AT, EOMI, JOHN, No JVD, sclera anicteric, moist mucosa LUNGS: CTA bilaterally, no wheezes, no crackles, no accessory muscle use. HEART: RRR, S1, S2 without murmur ABDOMEN: Soft, nontender, nondistended, normoactive bowel sounds, no guarding, negative Wagner's sign, no suprapubic tenderness, no hepatomegaly, no masses. EXTREMITIES: 2+ DP pulses, warm, well-perfused, no edema. NEUROLOGICAL: Cranial nerves II through XII grossly intact. Strength 5/5 grossly , Sensastion intact throughout. Normal speech, gait not observed. PSYCH: Pleasant, normal mood, normal affect. SKIN: Warm, dry, normal turgor, no rashes or lesions noted Laboratory Results - last 24 hr 09/05/17 09/05/17 05:30 05:30 WBC 10.3 H RBC 3.07 L Hgb 9.3 L Hct 27.1 L MCV 88.3 MCH 30.3 MCHC 34.3 RDW 14.5 Plt Count 207 MPV 8.6 Neutrophils % 73.3 Lymphocytes % 15.2 Monocytes % 10.3 H Eosinophils % 1.0 Basophils % 0.2 PT with INR 13.20 H INR 1.17 H PTT (Actin FS) VBG pH POC VBG pCO2 POC VBG pO2 Mixed VBG HCO3 Sodium Potassium Chloride Carbon Dioxide Anion Gap BUN Creatinine Creat Clearance w eGFR POC Glucometer Random Glucose Lactic Acid Calcium Phosphorus Magnesium Total Bilirubin AST ALT Alkaline Phosphatase Troponin I Total Protein Albumin Urine Color Urine Appearance Urine pH Ur Specific [place] Urine Protein Urine Glucose (UA) Urine Ketones Urine Blood Urine Nitrite Urine Bilirubin Urine Urobilinogen Ur Leukocyte Esterase Urine RBC Urine WBC Ur Epithelial Cells Amorphous Urates Urine Bacteria 09/05/17 05:30 WBC RBC Hgb Hct MCV MCH MCHC RDW Plt Count MPV Neutrophils % Lymphocytes % Monocytes % Eosinophils % Basophils % PT with INR INR PTT (Actin FS) VBG pH POC VBG pCO2 POC VBG pO2 Mixed VBG HCO3 Sodium 138 Potassium 3.5 Chloride 105 Carbon Dioxide 24 Anion Gap 9 BUN 22 H Creatinine 1.1 Creat Clearance w eGFR > 60 POC Glucometer Random Glucose 153 H Lactic Acid Calcium 7.1 L Phosphorus 2.7 Magnesium 1.8 Total Bilirubin 0.8 AST 18 ALT 15 Alkaline Phosphatase 87 Troponin I Total Protein 5.5 L Albumin 1.8 L Urine Color Urine Appearance Urine pH Ur Specific [place] Urine Protein Urine Glucose (UA) Urine Ketones Urine Blood Urine Nitrite Urine Bilirubin Urine Urobilinogen Ur Leukocyte Esterase Urine RBC Urine WBC Ur Epithelial Cells Amorphous Urates Urine Bacteria Active Medications Generic Name Dose Route Start Last Admin Trade Name Freq PRN Reason Stop Dose Admin Chlorhexidine Gluconate 1 applic 09/05/17 22:00 Hibiclens For Decolonization - TP HS [facility] Heparin Sodium (Porcine) 5,000 unit 09/05/17 06:00 09/05/17 06:09 Heparin - SQ 5,000 unit TID [facility] Administration Norepinephrine Bitartrate 8, 500 mls @ 7.5 mls/hr 09/04/17 22:33 09/05/17 00: 26 000 mcg/ Dextrose IV 09/07/17 17:12 5 mcg/min TITR ONE 18.75 mls/hr Protocol Titration 2 MCG/MIN Vancomycin HCl 1,000 mg/ 250 mls @ 250 mls/hr 09/05/17 10:00 Dextrose IVPB BID [facility] Protocol Insulin Aspart 1 vial 09/05/17 07:00 09/05/17 06:10 Novolog Vial Sliding Scale - SQ 2 units ACHS [facility] Administration Protocol Mupirocin 1 applic 09/05/17 10:00 Bactroban Ointment (For Decolonization) - NS 09/10/17 09:59 BID EKNJI Tamsulosin HCl 0.4 mg 09/05/17 08:30 Flomax - PO DAILY@0830 [facility] ASSESSMENT/PLAN: Neurological: Pt is currently neurologically intact Respiratory: Not in respiratory distress Cardiovascular: HTN --Hold home antihypertensive medications (Norvasc 10, Carvedilol, Valsartan/HCTZ) ID: Septic shock 2/2 to UTI --Awaiting Kidney US to r/o pyelonephritis (low suspicion based on clinical exam --UA noted --ID on board --Pt already received vanco x1, zosyn overnight, zithromax x1 --Blood cultures and urine cultures sent and pending --Continue Rocephin 2gm IV qdaily --Pt currently off Levophed; BP stable --Continue NS@75cc/hr for 1L --Continue marcelino; monitor output --LA 1.2, 1.1; no need to continue to monitor Endocrinology: NIDDM --Metformin to be held currently --BGM ACHS --ISS --Monitor glucose Urology: BPH --Continue Flomax 0.4mg PO qDaily FEN: Fluids: NS@75cc/hr for 1L Electrolyte abnormalities: None currently Nutrition: Diabetic diet PPX: DVT - Heparin 5000 TID SQ GI - Not indicated currently Deconditioning - Wait for BP to normalize before OOB orders LINES/Drains/Tubes Marcelino - 09/04/17 23:51 R IJ - 09/04/17 23:51 Dispo: Continue ICU monitoring Discussed with Dr. Richard Arguelles, DO - IM PGY-1 Visit type - Emergency Visit Emergency Visit: No - New Patient This patient is new to me today: No - Critical Care Critical Care patient: Yes Total Critical Care Time (in minutes): 38 Critical Care Statement: The care of this patient involved high complexity decision making to prevent further life threatening deterioration of the patient 's condition and/or to evaluate & treat vital organ system(s) failure or risk of failure.
[2017-09-05] MEDS ORDERED: TAMSULOSIN HCL 0.4 MG CAP.ER.24H (FP) PO SCH (08:30)
[2017-09-05] MEDS ORDERED: SODIUM CHLORIDE 1,000 ML IV SCH ×2 (08:45→09:30)
[2017-09-05] MEDS ORDERED: SODIUM CHLORIDE 0.45% 1,000 ML IV SCH (09:15)
--- NOTE | 2017-09-05 09:48 | CON.ID ---
Consult Consult Specialty:: Infectious Disease Referred by:: Primary Team Reason for Consultation:: UTI, Sepsis - History of Present Illness History of Present Illness: 87 year old M with pmh of NIDDM, HTN, CAD, BPH, recent hx of influenza presented with urinary frequency x 2 weeks. Patient states that over the past few weeks patient has had to go to the bathroom more frequently, but feels as if he cannot void completely (only dribbling). Patient felt as if his symptoms worsened and he began having generalized weakness. He went to his PCP yesterday who did a UA and prescribed him abx. At the pcp's office his BP was on the low side. Patient on his way home from the PCP had an episode of nb/nb emesis and his called EMS and sent him to the ER. Patient lives at home with his and works independently. He is able to complete ADLs. No history of prostate surgery. No antibiotic usage in the past year. - Past Medical History Cardio/Vascular: Yes: HTN Renal/: Yes: BPH, UTI Endocrine: Yes: Diabetes Mellitus (NIDM) - Past Surgical History Past Surgical History: Yes: None - Alcohol/Substance Use Hx Alcohol Use: No History of Substance Use: reports: None - Smoking History Smoking history: Never smoked Have you smoked in the past 12 months: No Aproximately how many cigarettes per day: 0 - Social History Usual Living Arrangement: With Spouse ADL: Independent History of Recent Travel: No Home Medications - Allergies Allergies/Adverse Reactions: Allergies Allergy/AdvReac Type Severity Reaction Status Date / Time No Known Allergies Allergy Verified 09/04/17 14:34 - Home Medications Home Medications: Ambulatory Orders Amlodipine Besylate 10 mg PO DAILY 09/04/17 Carvedilol 6.25 mg PO BID 09/04/17 Metformin HCl 500 mg PO BID 09/04/17 Omeprazole 20 mg PO DAILY 09/04/17 Tamsulosin HCl 0.4 mg PO DAILY 09/04/17 Valsartan/Hydrochlorothiazide [Valsartan-Hctz 160-12.5 mg Tab] 1 each PO DAILY 09/04/17 Review of Systems - Review of Systems Constitutional: reports: No Symptoms. denies: Chills, Diaphoresis, Fever Eyes: reports: No Symptoms HENT: reports: No Symptoms Neck: reports: No Symptoms Cardiovascular: reports: No Symptoms Respiratory: reports: No Symptoms Gastrointestinal: reports: Vomiting Genitourinary: reports: Frequency. denies: Burning, Dysuria Neurological: reports: No Symptoms Psychiatric: reports: No Symptoms Physical Exam Vital Signs: Vital Signs Temperature 98.2 F 09/05/17 06:00 Pulse Rate 98 H 09/05/17 06:00 Respiratory Rate 20 09/05/17 06:00 Blood Pressure 117/65 09/05/17 06:00 O2 Sat by Pulse Oximetry (%) 100 09/05/17 03:01 Constitutional: Yes: No Distress, Calm, Poor Hygeine Eyes: Yes: Conjunctiva Clear, EOM Intact HENT: Yes: Atraumatic, Normocephalic Neck: Yes: Supple, Trachea Midline Cardiovascular: Yes: Regular Rate and Rhythm, S1, S2 Respiratory: Yes: Regular, CTA Bilaterally. No: Rales, Rhonchi Gastrointestinal: Yes: Normal Bowel Sounds, Soft. No: Tenderness Renal/: Yes: Dee Present. No: CVA Tenderness - Left, CVA Tenderness - Right Edema: No Neurological: Yes: Alert, Oriented Psychiatric: Yes: Alert, Oriented Labs: CBC, BMP 09/05/17 05:30 09/05/17 05:30 Assessment/Plan Assessment: 1. Septic Shock 2/2 to UTI, antibiotic naive Plan: 1. Continue ceftriaxone 2g daily 2. F/u cultures & sensitivities 3. IV Fluids
[2017-09-05] MEDS ORDERED: CEFTRIAXONE 2 GM in DEXTROSE 5%-WATER - 100 ML IVPB SCH (10:00)
[2017-09-05] MEDS ORDERED: MUPIROCIN 2% TOPICAL OINTMENT FOR DECOLONIZATION NS SCH (10:00)
[2017-09-05] MEDS ORDERED: VANCOMYCIN 1,000 MG in DEXTROSE 5%-WATER - 250 ML IVPB SCH (10:00)
--- NOTE | 2017-09-05 11:35 | PN ---
Teaching Attending Note Name of Resident: Sen Arguelles ATTENDING PHYSICIAN STATEMENT I saw and evaluated the patient. I reviewed the resident's note and discussed the case with the resident. I agree with the resident's findings and plan as documented. SUBJECTIVE: Patient seen and examined in the ICU. Awake and alert. Denies CP or SOB. Currently off NE for hemodynamic support. Intake & Output 09/02/17 09/03/17 09/04/17 09/05/17 23:59 23:59 23:59 23:59 Intake Total 4450 1222 Output Total 200 1450 Balance 4250 -228 Weight 200 lb 200 lb 6 oz Last Vital Signs Temp Pulse Resp BP Pulse Ox 98 F 101 H 20 112/56 100 09/05/17 10:00 09/05/17 10:00 09/05/17 10:00 09/05/17 10:00 09/05/17 09:00 Active Medications Chlorhexidine Gluconate (Hibiclens For Decolonization -) 1 applic TP HS [facility] Heparin Sodium (Porcine) (Heparin -) 5,000 unit SQ TID [facility] Last Admin: 09/05/17 06:09 Dose: 5,000 unit Norepinephrine Bitartrate 8, (000 mcg/ Dextrose) 500 mls @ 7.5 mls/hr IV TITR ONE; 2 MCG/MIN PRN Reason: Protocol Stop: 09/07/17 17:12 Last Titration: 09/05/17 00:26 Dose: 5 mcg/min, 18.75 mls/hr Ceftriaxone Sodium 2 gm/ (Dextrose) 100 mls @ 200 mls/hr IVPB DAILY [facility] Last Admin: 09/05/17 10:32 Dose: 200 mls/hr Sodium Chloride (Normal Saline -) 1,000 mls @ 75 mls/hr IV ASDIR [facility] Last Admin: 09/05/17 10:32 Dose: 75 mls/hr Insulin Aspart (Novolog Vial Sliding Scale -) 1 vial SQ ACHS [facility] PRN Reason: Protocol Last Admin: 09/05/17 11:30 Dose: Not Given Mupirocin (Bactroban Ointment (For Decolonization) -) 1 applic NS BID [facility] Stop: 09/10/17 09:59 Last Admin: 09/05/17 09:24 Dose: 1 applic Tamsulosin HCl (Flomax -) 0.4 mg PO DAILY@0830 [facility] Last Admin: 09/05/17 09:24 Dose: 0.4 mg Constitutional: Yes: Well Nourished, No Distress, Awake and alert Eyes: Yes: Conjunctiva Clear, EOM Intact, PERRL HENT: Yes: Atraumatic, Normocephalic. No: Nasal Congestion, Rhinnorhea Neck: Yes: Supple, Trachea Midline. No: Lymphadenopathy Cardiovascular: Yes: Regular Rate and Rhythm, S1, S2. No: Murmur Respiratory: Yes: Regular, CTA Bilaterally. No: Accessory Muscle Use Gastrointestinal: Yes: Normal Bowel Sounds, Soft ...Rectal Exam: Yes: Deferred Renal/: Yes: WNL. No: Urethral Discharge Breast(s): Yes: WNL Musculoskeletal: Yes: WNL Edema: LLE: Trace, RLE: Trace Peripheral Pulses WNL: Yes Integumentary: Yes: WNL Neurological: Yes: WNL, Alert, Oriented, Non-focal ...Motor Strength: WNL Psychiatric: Yes: WNL, Alert, Oriented Labs: Laboratory Results - last 24 hr 09/04/17 09/04/17 09/04/17 15:35 16:10 16:10 WBC 11.6 H RBC 3.80 L Hgb 11.6 L Hct 33.1 L MCV 87.1 MCH 30.5 MCHC 35.0 RDW 13.8 Plt Count 224 MPV 8.4 Neutrophils % 90.9 H Lymphocytes % 4.2 L Monocytes % 4.6 Eosinophils % 0.1 Basophils % 0.2 PT with INR 13.9 H INR 1.25 H PTT (Actin FS) 25.4 L VBG pH POC VBG pCO2 POC VBG pO2 Mixed VBG HCO3 Sodium Potassium Chloride Carbon Dioxide Anion Gap BUN Creatinine Creat Clearance w eGFR POC Glucometer Random Glucose Lactic Acid Calcium Phosphorus Magnesium Total Bilirubin AST ALT Alkaline Phosphatase Troponin I 0.01 Total Protein Albumin Urine Color Urine Appearance Urine pH Ur Specific Zephyr Urine Protein Urine Glucose (UA) Urine Ketones Urine Blood Urine Nitrite Urine Bilirubin Urine Urobilinogen Ur Leukocyte Esterase Urine RBC Urine WBC Ur Epithelial Cells Amorphous Urates Urine Bacteria 09/04/17 09/04/17 09/04/17 16:10 16:10 16:10 WBC RBC Hgb Hct MCV MCH MCHC RDW Plt Count MPV Neutrophils % Lymphocytes % Monocytes % Eosinophils % Basophils % PT with INR INR PTT (Actin FS) VBG pH 7.49 H POC VBG pCO2 33.1 L POC VBG pO2 97.0 H Mixed VBG HCO3 24.8 Sodium 129 L Potassium 3.6 Chloride 98 Carbon Dioxide 21 L Anion Gap 10 BUN 26 H Creatinine 1.2 Creat Clearance w eGFR 57.41 POC Glucometer Random Glucose 214 H Lactic Acid Cancelled Calcium 8.2 L Phosphorus Magnesium Total Bilirubin 1.3 H AST 18 ALT 17 Alkaline Phosphatase 105 H Troponin I Total Protein 6.8 Albumin 2.6 L Urine Color Urine Appearance Urine pH Ur Specific Zephyr Urine Protein Urine Glucose (UA) Urine Ketones Urine Blood Urine Nitrite Urine Bilirubin Urine Urobilinogen Ur Leukocyte Esterase Urine RBC Urine WBC Ur Epithelial Cells Amorphous Urates Urine Bacteria 09/04/17 09/04/17 09/04/17 16:10 16:20 21:45 WBC 12.4 H RBC 3.23 L Hgb 10.1 L D Hct 28.0 L D MCV 86.7 MCH 31.1 MCHC 35.9 RDW 13.5 Plt Count 142 D MPV 8.9 Neutrophils % Lymphocytes % Monocytes % Eosinophils % Basophils % PT with INR INR PTT (Actin FS) VBG pH POC VBG pCO2 POC VBG pO2 Mixed VBG HCO3 Sodium Potassium Chloride Carbon Dioxide Anion Gap BUN Creatinine Creat Clearance w eGFR POC Glucometer Random Glucose Lactic Acid 1.9 Calcium Phosphorus Magnesium Total Bilirubin AST ALT Alkaline Phosphatase Troponin I Total Protein Albumin Urine Color Yellow Urine Appearance Sl cloudy Urine pH 5.5 Ur Specific Zephyr 1.015 Urine Protein 1+ H Urine Glucose (UA) Negative Urine Ketones Negative Urine Blood 3+ H Urine Nitrite Negative Urine Bilirubin Negative Urine Urobilinogen 0.2 Ur Leukocyte Esterase 2+ H Urine RBC 40-60 Urine WBC 40-60 Ur Epithelial Cells Moderate Amorphous Urates Few Urine Bacteria Moderate 09/04/17 09/05/17 09/05/17 22:20 05:30 05:30 WBC 10.3 H RBC 3.07 L Hgb 9.3 L Hct 27.1 L MCV 88.3 MCH 30.3 MCHC 34.3 RDW 14.5 Plt Count 207 MPV 8.6 Neutrophils % 73.3 Lymphocytes % 15.2 Monocytes % 10.3 H Eosinophils % 1.0 Basophils % 0.2 PT with INR 13.20 H INR 1.17 H PTT (Actin FS) VBG pH POC VBG pCO2 POC VBG pO2 Mixed VBG HCO3 Sodium Potassium Chloride Carbon Dioxide Anion Gap BUN Creatinine Creat Clearance w eGFR POC Glucometer Random Glucose Lactic Acid 1.1 Calcium Phosphorus Magnesium Total Bilirubin AST ALT Alkaline Phosphatase Troponin I Total Protein Albumin Urine Color Urine Appearance Urine pH Ur Specific Zephyr Urine Protein Urine Glucose (UA) Urine Ketones Urine Blood Urine Nitrite Urine Bilirubin Urine Urobilinogen Ur Leukocyte Esterase Urine RBC Urine WBC Ur Epithelial Cells Amorphous Urates Urine Bacteria 09/05/17 09/05/17 05:30 05:35 WBC RBC Hgb Hct MCV MCH MCHC RDW Plt Count MPV Neutrophils % Lymphocytes % Monocytes % Eosinophils % Basophils % PT with INR INR PTT (Actin FS) VBG pH POC VBG pCO2 POC VBG pO2 Mixed VBG HCO3 Sodium 138 Potassium 3.5 Chloride 105 Carbon Dioxide 24 Anion Gap 9 BUN 22 H Creatinine 1.1 Creat Clearance w eGFR > 60 POC Glucometer [phone] Random Glucose 153 H Lactic Acid Calcium 7.1 L Phosphorus 2.7 Magnesium 1.8 Total Bilirubin 0.8 AST 18 ALT 15 Alkaline Phosphatase 87 Troponin I Total Protein 5.5 L Albumin 1.8 L Urine Color Urine Appearance Urine pH Ur Specific Zephyr Urine Protein Urine Glucose (UA) Urine Ketones Urine Blood Urine Nitrite Urine Bilirubin Urine Urobilinogen Ur Leukocyte Esterase Urine RBC Urine WBC Ur Epithelial Cells Amorphous Urates Urine Bacteria Problem List - Problems (1) Sepsis Code(s): A41.9 - SEPSIS, UNSPECIFIED ORGANISM Qualifiers: Sepsis type: sepsis due to unspecified organism Qualified Code(s): A41.9 - Sepsis, unspecified organism (2) UTI (urinary tract infection) Code(s): N39.0 - URINARY TRACT INFECTION, SITE NOT SPECIFIED Qualifiers: Urinary tract infection type: site unspecified Hematuria presence: without hematuria Qualified Code(s): N39.0 - Urinary tract infection, site not specified Assessment/Plan Septic Shock due to UTI IVF : NS ABX coverage VTE prophylaxis PO as tolerated Glycemic control Strict I & O Decolonization Dr Ramos Critical care time spent in reviewing chart, evaluating patient and formulating plan - 36 minutes.
--- NOTE | 2017-09-05 12:31 | PN ---
Teaching Attending Note Name of Resident: Michael Merino ATTENDING PHYSICIAN STATEMENT I saw and evaluated the patient. I reviewed the resident's note and discussed the case with the resident. I agree with the resident's findings and plan as documented. SUBJECTIVE: feels well today, marcelino placed yesterday pressors off ate breakfast no history of prior utis no recent antibioitcs OBJECTIVE: Vital Signs Period Temp Pulse Resp BP Sys/Case Pulse Ox Last 24 Hr 98 F-103 F 71-118 14-24 62-140/42-103 96-100 cor-rrr lungs clear abd soft,nt ext no edema foleyintact- clear urine CBC, BMP 09/05/17 05:30 09/05/17 05:30 ASSESSMENT AND PLAN: sepsis UTI agree with rocephin continue IVF f/u cultures Problem List - Problems (1) Sepsis Code(s): A41.9 - SEPSIS, UNSPECIFIED ORGANISM Qualifiers: Sepsis type: sepsis due to unspecified organism Qualified Code(s): A41.9 - Sepsis, unspecified organism (2) UTI (urinary tract infection) Code(s): N39.0 - URINARY TRACT INFECTION, SITE NOT SPECIFIED Qualifiers: Urinary tract infection type: site unspecified Hematuria presence: without hematuria Qualified Code(s): N39.0 - Urinary tract infection, site not specified
--- NOTE | 2017-09-05 14:17 | PN ---
Teaching Attending Note Name of Resident: Sen Stokes ATTENDING PHYSICIAN STATEMENT I saw and evaluated the patient. I reviewed the resident's note and discussed the case with the resident. I agree with the resident's findings and plan as documented. SUBJECTIVE: OBJECTIVE: ASSESSMENT AND PLAN: 87 y/o man with h/o HTN, DM , recent flu infection who presented not feeling well and was found to have septic shock from UTI. 1- septic shock /complicated UTI//Pyelo . shock resolved. BP improved - ceftriaxone empirically - follow urine and blood cx - renal US with hypodense area will check if he had any surgery vs prostatitis and abscess - start 07/11 NS 2- hyponatremia, slightly quickly corrected after NS resuscitation - cont with 07/01 NS 3- HTN: hold all BP meds 4- DM : SSI -hold metformin dispo : transfer out of ICU
--- NOTE | 2017-09-05 16:14 | CON.GU ---
Consult Consult Specialty:: Referred by:: medicine Reason for Consultation:: 87 yo male with BPH and UTI - History of Present Illness Chief Complaint: UTI, BPH History of Present Illness: 87 year old male who presents with low blood pressure and UTI/. He has a history of BPH and severe LUTS. CT scan revealed a large renal cyst 8cm and an 115 gram prostate. Marcelino cath is in place draining his bladder. - History Source History Provided By: Patient, Medical Record Limitations to Obtaining History: No Limitations - Past Medical History Cardio/Vascular: Yes: HTN Renal/: Yes: BPH, UTI Endocrine: Yes: Diabetes Mellitus (NIDM) - Past Surgical History Past Surgical History: Yes: None - Alcohol/Substance Use Hx Alcohol Use: No History of Substance Use: reports: None - Smoking History Smoking history: Never smoked Have you smoked in the past 12 months: No Aproximately how many cigarettes per day: 0 - Social History Usual Living Arrangement: With Spouse ADL: Independent History of Recent Travel: No Home Medications - Allergies Allergies/Adverse Reactions: Allergies Allergy/AdvReac Type Severity Reaction Status Date / Time No Known Allergies Allergy Verified 09/04/17 14:34 - Home Medications Home Medications: Ambulatory Orders Amlodipine Besylate 10 mg PO DAILY 09/04/17 Carvedilol 6.25 mg PO BID 09/04/17 Metformin HCl 500 mg PO BID 09/04/17 Omeprazole 20 mg PO DAILY 09/04/17 Tamsulosin HCl 0.4 mg PO DAILY 09/04/17 Valsartan/Hydrochlorothiazide [Valsartan-Hctz 160-12.5 mg Tab] 1 each PO DAILY 09/04/17 Review of Systems - Review of Systems Genitourinary: reports: Frequency, Incontinence. denies: Hematuria Physical Exam- Vital Signs: Vital Signs Temperature 98.8 F 09/05/17 14:00 Pulse Rate 92 H 09/05/17 14:00 Respiratory Rate 18 09/05/17 14:00 Blood Pressure 112/60 09/05/17 14:00 O2 Sat by Pulse Oximetry (%) 100 09/05/17 09:00 Renal/: Yes: Marcelino Present. No: Bladder Distention, CVA Tenderness - Left, CVA Tenderness - Right, Hematuria Labs: CBC, BMP 09/05/17 05:30 09/05/17 05:30 Imaging - Results Cat Scan: Report Reviewed Problem List - Problems (1) Renal cyst Assessment/Plan: simple cyst. no treatment at this time Code(s): N28.1 - CYST OF KIDNEY, ACQUIRED (2) BPH associated with nocturia Assessment/Plan: very large prostate. start him on finasteride and flomax. check PSA> maintain marcelino until he is stable Code(s): N40.1 - BENIGN PROSTATIC HYPERPLASIA WITH LOWER URINARY TRACT SYMP; R35.1 - NOCTURIA
[2017-09-05] MEDS: FINASTERIDE 5 MG TABLET (FP) PO SCH (17:03)
--- NOTE | 2017-09-05 18:03 | PN ---
Physical Exam: SUBJECTIVE: Patient seen and examined at bedside. No acute complaints. No fevers , chills, nausea, vomiting, diarrhea, chest pain, shortness of breath. OVernight patient has been off pressors and asymptomatic. OBJECTIVE: Vital Signs Period Temp Pulse Resp BP Sys/Case Pulse Ox Last 24 Hr 98 F-101.2 F 71-101 14-24 62-122/42-66 99-100 GENERAL: A&O x3 HEART: RRR, no murmurs LUNGS: CTA ABD: Soft, nontender : Dee in draining 100cc clear urine Neuro: CN II-XII intact, no focal deficits Laboratory Results - last 24 hr 09/04/17 09/04/17 09/04/17 16:10 21:45 22:20 WBC 12.4 H RBC 3.23 L Hgb 10.1 L D Hct 28.0 L D MCV 86.7 MCH 31.1 MCHC 35.9 RDW 13.5 Plt Count 142 D MPV 8.9 Neutrophils % Lymphocytes % Monocytes % Eosinophils % Basophils % PT with INR INR Sodium Potassium Chloride Carbon Dioxide Anion Gap BUN Creatinine Creat Clearance w eGFR POC Glucometer Random Glucose Lactic Acid Cancelled 1.1 Calcium Phosphorus Magnesium Total Bilirubin AST ALT Alkaline Phosphatase Total Protein Albumin 09/05/17 09/05/17 09/05/17 05:30 05:30 05:30 WBC 10.3 H RBC 3.07 L Hgb 9.3 L Hct 27.1 L MCV 88.3 MCH 30.3 MCHC 34.3 RDW 14.5 Plt Count 207 MPV 8.6 Neutrophils % 73.3 Lymphocytes % 15.2 Monocytes % 10.3 H Eosinophils % 1.0 Basophils % 0.2 PT with INR 13.20 H INR 1.17 H Sodium 138 Potassium 3.5 Chloride 105 Carbon Dioxide 24 Anion Gap 9 BUN 22 H Creatinine 1.1 Creat Clearance w eGFR > 60 POC Glucometer Random Glucose 153 H Lactic Acid Calcium 7.1 L Phosphorus 2.7 Magnesium 1.8 Total Bilirubin 0.8 AST 18 ALT 15 Alkaline Phosphatase 87 Total Protein 5.5 L Albumin 1.8 L 09/05/17 09/05/17 09/05/17 05:35 11:29 16:59 WBC RBC Hgb Hct MCV MCH MCHC RDW Plt Count MPV Neutrophils % Lymphocytes % Monocytes % Eosinophils % Basophils % PT with INR INR Sodium Potassium Chloride Carbon Dioxide Anion Gap BUN Creatinine Creat Clearance w eGFR POC Glucometer 186.81879 133.58525 [phone] Random Glucose Lactic Acid Calcium Phosphorus Magnesium Total Bilirubin AST ALT Alkaline Phosphatase Total Protein Albumin Active Medications Generic Name Dose Route Start Last Admin Trade Name Monalisa PRN Reason Stop Dose Admin Chlorhexidine Gluconate 1 applic 09/05/17 22:00 Hibiclens For Decolonization - TP HS KENJI Finasteride 5 mg 09/05/17 16:30 09/05/17 17:03 Proscar - PO 5 mg DAILY KENJI Administration Heparin Sodium (Porcine) 5,000 unit 09/05/17 06:00 09/05/17 13:19 Heparin - SQ 5,000 unit TID KENJI Administration Ceftriaxone Sodium 2 gm/ 100 mls @ 200 mls/hr 09/05/17 10:00 09/05/17 10:32 Dextrose IVPB 200 mls/hr DAILY KENJI Administration Sodium Chloride 1,000 mls @ 75 mls/hr 09/05/17 09:30 09/05/17 10:32 Normal Saline - IV 75 mls/hr ASDIR KENJI Administration Insulin Aspart 1 vial 09/05/17 07:00 09/05/17 17:03 Novolog Vial Sliding Scale - SQ 2 units ACHS KENJI Administration Protocol Mupirocin 1 applic 09/05/17 10:00 09/05/17 09:24 Bactroban Ointment (For Decolonization) - NS 09/10/17 09:59 1 applic BID KENJI Administration Tamsulosin HCl 0.4 mg 09/05/17 08:30 09/05/17 09:24 Flomax - PO 0.4 mg DAILY@0830 KENJI Administration CXR 09/04: 1. Status post interval placement of right IJ approach central venous catheter with catheter tip in appropriate position. No definable pneumothorax. 2. Otherwise, no definite interval change from chest x-ray performed earlier the same day. US Bladder/kidney 09/04: The liver measures 18.5 cm in sagittal length with a slightly dense echotexture. The gallbladder is adequately distended with multiple intraluminal stones, minimal thickening of its anterior wall measuring 4 mm and without evidence of pericholecystic free fluid. Largest stone measures 2 cm. No intrahepatic bile duct dilatation is seen. Common bile duct measures 8.5 mm The right and left kidney measured 13.2 and 13.1 cm , respectively. The right kidney appears unremarkable. There is a partially exophytic left mid to lower renal simple cyst measuring 8.1 x 5 cm.. There is no evidence of hydronephrosis or renal stones, bilaterally. The spleen measures 13.5 cm in sagittal length with homogeneous echotexture. The pancreas was not visualized presumably due to overlying bowel gas. Visualized portion of the proximal abdominal aorta and inferior vena cava are patent. Normal flow in the main portal vein. IMPRESSION: Mild hepatomegaly with a slightly dense echotexture suggestive of mild fatty infiltration versus hepatocellular disease. Multiple gallstones with the largest measuring 2 cm and minimal thickening of its wall measuring 4 mm. No pericholecystic free fluid is present. Correlate for further evaluation. Considering the patient's age, there is borderline to mild dilatation of the common bile duct measuring 8.5 mm. Partially exophytic large left renal simple cyst measuring 8.1 x 5 cm without evidence of renal stones or hydronephrosis, bilaterally Pelvis/urinary bladder ultrasound A Dee catheter is present within a decompressed urinary bladder significantly limiting its evaluation. The prostate gland measures 115 cc in volume with a low-attenuation density in its center measuring 4 cm for which further evaluation is needed IMPRESSION: Dee catheter within a decompressed urinary bladder significantly limiting its evaluation. Significantly enlarged prostate gland with a volume of 115 cc and with a focal low-attenuation density in its center measuring 4 cm that may be post op. Correlate clinically to determine further evaluation. Correlation with MRI could be obtained for further evaluation. ASSESSMENT/PLAN: 87 year old male with a history of hypertension, DM, CAD, BPH is admitted for septic shock 2/2 UTI #Septic Shock: secondary to UTI, resolved -off pressors -blood pressure remains stable -ceftriaxone 2gm IV QD -follow cultures -ID consult appreciated -US kidney/bladder performed with #Bladder mass: a low-attenuation density in prostate center measuring 4 cm - consult appreciated -continue finasteride/flomax #DM: stable -ISS #HTN: meds were held due to shock status -continue to hold meds for now #FEN NS @ 75cc/hr Replete lytes as necessary diabetic diet #Prophylaxis Heparin 5000 subq TID #Disposition: -Continue to monitor in ICU Visit type - Emergency Visit Emergency Visit: No - New Patient This patient is new to me today: Yes Date on this admission: 09/05/17 - Critical Care Critical Care patient: Yes Total Critical Care Time (in minutes): 35 Critical Care Statement: The care of this patient involved high complexity decision making to prevent further life threatening deterioration of the patient 's condition and/or to evaluate & treat vital organ system(s) failure or risk of failure.
[2017-09-05] MEDS: SODIUM CHLORIDE 1,000 ML IV SCH (21:56)
[2017-09-05] MEDS: MUPIROCIN 2% TOPICAL OINTMENT FOR DECOLONIZATION NS SCH (21:57)
[2017-09-05] MEDS: CHLORHEXIDINE GLUCONATE 4% CLEANSER FOR DECOLONIZATION TP SCH (21:57)
[2017-09-05] MEDS ORDERED: CHLORHEXIDINE GLUCONATE 4% CLEANSER FOR DECOLONIZATION TP SCH (22:00)
--- NOTE | 2017-09-06 01:18 | EKG ---
Test Reason : Blood Pressure : / mmHG Vent. Rate : 118 BPM Atrial Rate : 118 BPM P-R Int : 000 ms QRS Dur : 092 ms QT Int : 342 ms P-R-T Axes : 000 -45 088 degrees QTc Int : 479 ms SINUS TACHYCARDIA WITH 1ST DEGREE A-V BLOCK WITH OCCASIONAL PREMATURE VENTRICULAR COMPLEXES INCOMPLETE RIGHT BUNDLE BRANCH BLOCK LEFT ANTERIOR FASCICULAR BLOCK NONSPECIFIC ST AND T WAVE ABNORMALITY ABNORMAL ECG NO PREVIOUS ECGS AVAILABLE Confirmed by SAVI CARRERO, GINNA ([id number]) on 09/06/2017 1:18:03 AM Referred By: DR MEDINA Confirmed By:GINNA HOU MD
[2017-09-06] MEDS ORDERED: dilTIAZem HCL 50 MG/10 ML - 10 ML VIAL IVPUSH ONE (02:33)
[2017-09-06] MEDS ORDERED: dilTIAZem HCL 125 MG/25 ML - 25 ML VIAL ONE (02:35)
[2017-09-06] MEDS ORDERED: dilTIAZem HCL 50 MG/10 ML - 10 ML VIAL IVPUSH PRN (02:48)
[2017-09-06] MEDS: DILTIAZEM INJECTION 125 MG in DEXTROSE 5%-WATER - 100 ML IVPB SCH (03:00)
[2017-09-06 06:30] LABS: HEMATOCRIT 28.3 % (35.4-49); HEMOGLOBIN 9.7 GM/dL (11.7-16.9); MCH 30.2 pg (25.7-33.7); MCHC 34.3 g/dl (32.0-35.9); MEAN CELL VOLUME 88.2 fl (80-96); MEAN PLT VOLUME 8.9 fl (7.5-11.1); PLATELET COUNT 181 K/MM3 (134-434); RBC 3.21 M/mm3 (4.00-5.60); RDW 14.5 % (11.9-15.9); WHITE BLOOD COUNT 6.8 K/mm3 (4.0-10.0)
[2017-09-06] MEDS: HEPARIN NA (PORCINE) 5,000 UNITS/ML 1ML VIAL SQ SCH (06:30)
[2017-09-06] MEDS: INSULIN SLIDING SCALE (NOVOLOG) 1 VIAL SQ SCH ×4 (06:30→21:27)
[2017-09-06 06:39] LABS: ALBUMIN 1.9 g/dl (3.4-5.0); ALK PHOS 86 U/L (45-117); ANION GAP 8 (8-16); BILIRUBIN,TOTAL 0.6 mg/dL (0.2-1.0); BLOOD UREA NITROGEN 15 mg/dL (7-18); CALCIUM 7.1 mg/dL (8.5-10.1); CHLORIDE 105 mmol/L (98-107); CO2 24 mmol/L (21-32); CREATININE 0.9 mg/dL (0.7-1.3); GLUCOSE,RANDOM 116 mg/dL (74-106); MAGNESIUM 1.4 mg/dL (1.8-2.4); PHOSPHOROUS 1.4 mg/dL (2.5-4.9); SGOT/AST 14 U/L (15-37); SGPT/ALT 13 U/L (12-78); SODIUM 137 mmol/L (136-145); TOT PROT 5.3 g/dl (6.4-8.2)
[2017-09-06] MEDS ORDERED: PT OWN MED DRAWER 7, Y5N ONE ×3 (07:03→09:13)
--- NOTE | 2017-09-06 07:24 | PN ---
Progress Note (short form) - Note Progress Note: no complaints noted to be in afib last night no fevers Vital Signs Period Temp Pulse Resp BP Sys/Case Pulse Ox Last 24 Hr 97.6 F-98.8 F 92-120 18-21 92-135/42-75 100-100 cor-irreg lungs clear abd soft,nt ext no edema CBC, BMP 09/06/17 06:00 Microbiology 09/04/17 16:10 Blood - Peripheral Venous Blood Culture - Preliminary NO GROWTH OBTAINED AFTER 24 HOURS, INCUBATION TO CONTINUE FOR 4 DAYS. 09/04/17 16:10 Blood - Peripheral Venous Blood Culture - Preliminary NO GROWTH OBTAINED AFTER 24 HOURS, INCUBATION TO CONTINUE FOR 4 DAYS. a/p sepsis uti afib (new) abnl prostate on imaging continue ceftriaxone psa f/u cultures ?prostate imaging Problem List - Problems (1) Sepsis Code(s): A41.9 - SEPSIS, UNSPECIFIED ORGANISM Qualifiers: Sepsis type: sepsis due to unspecified organism Qualified Code(s): A41.9 - Sepsis, unspecified organism (2) UTI (urinary tract infection) Code(s): N39.0 - URINARY TRACT INFECTION, SITE NOT SPECIFIED Qualifiers: Urinary tract infection type: site unspecified Hematuria presence: without hematuria Qualified Code(s): N39.0 - Urinary tract infection, site not specified
[2017-09-06] MEDS ORDERED: MAGNESIUM SULF 50% (8.12 MEQ/2 ML-1 GM VIAL) IVPB ONE (08:24)
--- NOTE | 2017-09-06 08:32 | PN ---
Teaching Attending Note Name of Resident: Ayah Coronado ATTENDING PHYSICIAN STATEMENT I saw and evaluated the patient. I reviewed the resident's note and discussed the case with the resident. I agree with the resident's findings and plan as documented. SUBJECTIVE: no fever or chills , no SOB or abd pain, had palpitation over night , was found to have HR 140s, started on cardizem gtt OBJECTIVE: NAD , pleasant and cooperative CV: RRR, no MRG Lungs: CTAB abd: soft, NT, ND , NL BS Ext: no edema ASSESSMENT AND PLAN: 87 y/o man with h/o HTN, DM , recent flu infection who presented not feeling well and was found to have septic shock from UTI. 1- Septic shock /complicated UTI//Pyelo . shock resolved, off pressors . - cont ceftriaxone - follow urine and blood cx - non tender prostate on rectal exam makes prostatic abscess unlikely. - no suspicion for a biliary source or other source of infection . 2-TAchycardia: EKGs from last night reviewed, poor quality, hard to tell if A fib. tele reviewed, irregular rhythm alternating with sinus . Most likely a fib EKG repeated Now, sinus rhythm with L axis deviation - cont cardizem gtt , try to introduce po cardizem 30 q 6 h with careful watch of his BP - taper gtt off - CHADSVASC 3 . 3.2 % risk of stroke /year - although , he is in sinus ryhthm now , he need AC - had no h/o GI /Uro/gum/bleed . NO h/o falls - options of AC coumadin/ lovenox/NOACs discussed with him,also risk of bleed ( minor/major/life threatening ) was d/w him. he agrees with AC, and chose NOACS - will start eliquis - card consult 3- dilated CBD on US . no signs of LFTS abn - out pt MRCP 4- prostatic mass : 4 cm . unlikely absecess. could be benign or malignant mass - check transrectal US . - PSA , although might not be very helpful is pending 3- HTN: hold all BP meds 4- DM : SSI -hold metformin dispo :ICU level of care CCT 40 min Critical Care Total Critical Care Time (in minutes): 40 Critical Care Statement: The care of this patient involved high complexity decision making to prevent further life threatening deterioration of the patient 's condition and/or to evaluate & treat vital organ system(s) failure or risk of failure.
[2017-09-06] MEDS: TAMSULOSIN HCL 0.4 MG CAP.ER.24H (FP) PO SCH (08:43)
[2017-09-06] MEDS ORDERED: POTASSIUM CHLORIDE TABS 20 MEQ TABLET.ER (FP) PO ONE (09:15)
[2017-09-06] MEDS: FINASTERIDE 5 MG TABLET (FP) PO SCH (09:16)
[2017-09-06] MEDS: MUPIROCIN 2% TOPICAL OINTMENT FOR DECOLONIZATION NS SCH ×2 (09:16→21:17)
--- NOTE | 2017-09-06 09:16 | PN ---
Progress Note (short form) - Note Progress Note: Seen and examined in the ICU New onset afib w/ RVR overnight requiring diltiazem drip for rate control afebrile BP stable Urine w/ GNRs Active Medications Apixaban (Eliquis -) 5 mg PO BID [facility] Chlorhexidine Gluconate (Hibiclens For Decolonization -) 1 applic TP HS [facility] Last Admin: 09/05/17 21:57 Dose: 1 applic Diltiazem HCl (Cardizem Injection -) 10 mg IVPUSH Q4H PRN PRN Reason: HR >130 Diltiazem HCl (Cardizem -) 30 mg PO Q6HPO KENJI Finasteride (Proscar -) 5 mg PO DAILY [facility] Last Admin: 09/05/17 17:03 Dose: 5 mg Ceftriaxone Sodium 2 gm/ (Dextrose) 100 mls @ 200 mls/hr IVPB DAILY [facility]ENJ[facility] Sodium Chloride (Normal Saline -) 1,000 mls @ 75 mls/hr IV ASDIR [facility] Last Admin: 09/05/17 21:56 Dose: 75 mls/hr Diltiazem HCl 125 mg/ Dextrose 125 mls @ 5 mls/hr IVPB TITR KENJI; 5 MG/HR PRN Reason: Protocol Last Admin: 09/06/17 03:00 Dose: 5 mg/hr, 5 mls/hr Potassium Chloride 10 meq/ (Sodium Chloride) 105 mls @ 100 mls/hr IVPB Q60M [facility] Stop: 09/06/17 12:29 Insulin Aspart (Novolog Vial Sliding Scale -) 1 vial SQ ACHS KENJI PRN Reason: Protocol Last Admin: 09/06/17 06:30 Dose: Not Given Mupirocin (Bactroban Ointment (For Decolonization) -) 1 applic NS BID [facility] Stop: 09/10/17 09:59 Last Admin: 09/05/17 21:57 Dose: 1 applic Potassium Chloride (K-Dur -) 40 meq PO ONCE ONE Stop: 09/06/17 09:16 Potassium Phos/Sodium Phos (Phos-Nak Packet -) 1 packet PO TID [facility] Stop: 09/07/17 06:01 Tamsulosin HCl (Flomax -) 0.4 mg PO DAILY@0830 [facility] Last Admin: 09/06/17 08:43 Dose: 0.4 mg Vital Signs Period Temp Pulse Resp BP Sys/Case Pulse Ox Last 24 Hr 97.6 F-98.8 F 91-120 18-25 92-135/42-75 100-100 Intake & Output 09/03/17 09/04/17 09/05/17 09/06/17 23:59 23:59 23:59 23:59 Intake Total 4450 2547 545 Output Total 200 3050 900 Balance 2879 -374 -331 Weight 90.718 kg 90.889 kg 90.492 kg Exam: General: awake, alert and cooperative w/o distress: denies hammonds/cp/n/v HEENT: PERRL Pulm: CTA CV: NSR Ext: WWP Neuro: AOx3 CN grossly intact CBCD WBC 6.8 K/mm3 (4.0-10.0) D 09/06/17 06:00 RBC 3.21 M/mm3 (4.00-5.60) L 09/06/17 06:00 Hgb 9.7 GM/dL (11.7-16.9) L 09/06/17 06:00 Hct 28.3 % (35.4-49) L 09/06/17 06:00 MCV 88.2 fl (80-96) 09/06/17 06:00 MCHC 34.3 g/dl (32.0-35.9) 09/06/17 06:00 RDW 14.5 % (11.9-15.9) 09/06/17 06:00 Plt Count 181 K/MM3 (134-434) 09/06/17 06:00 MPV 8.9 fl (7.5-11.1) 09/06/17 06:00 CMP Sodium 137 mmol/L (136-145) 09/06/17 06:00 Potassium 3.0 mmol/L (3.5-5.1) L 09/06/17 06:00 Chloride 105 mmol/L (98-107) 09/06/17 06:00 Carbon Dioxide 24 mmol/L (21-32) 09/06/17 06:00 Anion Gap 8 (8-16) 09/06/17 06:00 BUN 15 mg/dL (7-18) D 09/06/17 06:00 Creatinine 0.9 mg/dL (0.7-1.3) 09/06/17 06:00 Creat Clearance w eGFR > 60 (>60) 09/06/17 06:00 Calcium 7.1 mg/dL (8.5-10.1) L 09/06/17 06:00 Total Bilirubin 0.6 mg/dL (0.2-1.0) D 09/06/17 06:00 AST 14 U/L (15-37) L D 09/06/17 06:00 ALT 13 U/L (12-78) 09/06/17 06:00 Alkaline Phosphatase 86 U/L (45-117) 09/06/17 06:00 Total Protein 5.3 g/dl (6.4-8.2) L 09/06/17 06:00 Albumin 1.9 g/dl (3.4-5.0) L 09/06/17 06:00 Microbiology 09/04/17 16:20 Urine - Urine - Catheterized Urine Culture - Preliminary Lactose Fermenting Neg Bacilli 09/04/17 16:10 Blood - Peripheral Venous Blood Culture - Preliminary NO GROWTH OBTAINED AFTER 24 HOURS, INCUBATION TO CONTINUE FOR 4 DAYS. 09/04/17 16:10 Blood - Peripheral Venous Blood Culture - Preliminary NO GROWTH OBTAINED AFTER 24 HOURS, INCUBATION TO CONTINUE FOR 4 DAYS. - Problems (1) Sepsis Code(s): A41.9 - SEPSIS, UNSPECIFIED ORGANISM Qualifiers: Sepsis type: sepsis due to unspecified organism Qualified Code(s): A41.9 - Sepsis, unspecified organism (2) UTI (urinary tract infection) Code(s): N39.0 - URINARY TRACT INFECTION, SITE NOT SPECIFIED Qualifiers: Urinary tract infection type: site unspecified Hematuria presence: without hematuria Qualified Code(s): N39.0 - Urinary tract infection, site not specified Assessment/Plan Septic Shock due to UTI: GNR New afib w/ RVR IVF : NS Repleat lytes EKG, ECHO ABX coverage per ID transition CCB drip to PO VTE prophylaxis PO as tolerated Glycemic control Strict I & O Cont ICU contiorong given new afib w/ RVR Boerem ACNP Pulm/CCM CCT: 35m
[2017-09-06] MEDS: CEFTRIAXONE 2 GM in DEXTROSE 5%-WATER - 100 ML IVPB SCH (09:17)
[2017-09-06] MEDS ORDERED: ONDANSETRON 4 MG/2 ML VIAL IVPUSH PRN (09:24)
[2017-09-06] MEDS: POTASSIUM CHLORIDE 10 MEQ in SODIUM CHLORIDE 100 ML IVPB SCH ×3 (09:30→11:30)
[2017-09-06] MEDS: APIXABAN 5 MG TABLET PO SCH ×2 (09:33→21:19)
[2017-09-06] MEDS: dilTIAZem HCL 30 MG TABLET (FP) PO SCH ×3 (09:33→18:16)
--- NOTE | 2017-09-06 11:11 | PN ---
Progress Note (short form) - Note Progress Note: marcelino in place urine clear scan reviewed cont chari to VERONICA
--- NOTE | 2017-09-06 12:12 | CON.CARD ---
Consult Consult Specialty:: Cardiology Referred by:: Hospitalist (Dr. 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 He is being treated for UTI and sepsis, seen by ID and service. He was transferred to ICU due to rapid narrow complex tachycardia suggestive of atrial fibrillation. He was given Cardizem drip and now in sinus rhythm with periods of atrial arrhythmic bursts. He was also started on Eliquis 5 mg BID today. He is awake and alert. He denies chest pain, shortness of breath or palpitations. He denies paroxysmal nocturnal dyspnea or orthopnea. He denies fever, but complained of chills. He denies nausea, vomiting, diarrhea or abdominal pain. He denies headache or lightheadedness. He states that he had seen Dr. Too Veras of [facility] in the distant past. - History Source History Provided By: Patient, Family Member, Medical Record Limitations to Obtaining History: No Limitations - Past Medical History Cardio/Vascular: Yes: HTN Renal/: Yes: BPH, UTI Endocrine: Yes: Diabetes Mellitus - Past Surgical History Past Surgical History: Yes: None - Alcohol/Substance Use Hx Alcohol Use: No History of Substance Use: reports: None - Smoking History Smoking history: Never smoked Have you smoked in the past 12 months: No Aproximately how many cigarettes per day: 0 - Social History Usual Living Arrangement: With Spouse ADL: Independent History of Recent Travel: No Home Medications - Allergies Allergies/Adverse Reactions: Allergies Allergy/AdvReac Type Severity Reaction Status Date / Time No Known Allergies Allergy Verified 09/04/17 14:34 - Home Medications Home Medications: Ambulatory Orders Amlodipine Besylate 10 mg PO DAILY 09/04/17 Carvedilol 6.25 mg PO BID 09/04/17 Metformin HCl 500 mg PO BID 09/04/17 Omeprazole 20 mg PO DAILY 09/04/17 Tamsulosin HCl 0.4 mg PO DAILY 09/04/17 Valsartan/Hydrochlorothiazide [Valsartan-Hctz 160-12.5 mg Tab] 1 each PO DAILY 09/04/17 Family Disease History - Family Disease History Family Disease History: CA: Mother Review of Systems - Review of Systems Constitutional: reports: Chills. denies: Fever Cardiovascular: denies: Chest Pain, Palpitations, Shortness of Breath Respiratory: denies: Cough, Hemoptysis, Orthopnea, PND, SOB, SOB on Exertion Gastrointestinal: denies: Abdominal Pain, Constipation, Diarrhea, Melena, Nausea , Rectal Bleeding Genitourinary: reports: Frequency Musculoskeletal: denies: Joint Pain Neurological: denies: Dizziness, Headache, Seizure, Syncope Vital Signs: Vital Signs Temperature 97.7 F 09/06/17 10:00 Pulse Rate 83 09/06/17 10:00 Respiratory Rate 21 09/06/17 10:00 Blood Pressure 96/48 09/06/17 10:00 O2 Sat by Pulse Oximetry (%) 100 09/06/17 08:00 Constitutional: Yes: Well Nourished Eyes: Yes: PERRL HENT: Yes: Atraumatic Neck: Yes: Supple Respiratory: Yes: CTA Bilaterally Gastrointestinal: Yes: Normal Bowel Sounds, Soft. No: Tenderness Cardiovascular: Yes: Regular Rate and Rhythm JVD: No Carotid Bruit: No PMI: Non-Displaced Heart Sounds: Yes: S1, S2 Murmur: Yes: Systolic Murmur, Grade 1 Edema: No - Other Data Labs, Other Data: CBC, BMP 09/06/17 06:00 09/06/17 06:00 INR, PTT INR 1.17 (0.82-1.09) H 09/05/17 05:30 Laboratory Results - last 24 hr 09/05/17 09/05/17 09/05/17 16:59 20:20 22:00 WBC RBC Hgb Hct MCV MCH MCHC RDW Plt Count MPV Sodium 137 Potassium Chloride Carbon Dioxide Anion Gap BUN Creatinine Creat Clearance w eGFR POC Glucometer 188.50343 140.25963 Random Glucose Calcium Phosphorus Magnesium Total Bilirubin AST ALT Alkaline Phosphatase Total Protein Albumin 09/06/17 09/06/17 09/06/17 06:00 06:00 06:03 WBC 6.8 D RBC 3.21 L Hgb 9.7 L Hct 28.3 L MCV 88.2 MCH 30.2 MCHC 34.3 RDW 14.5 Plt Count 181 MPV 8.9 Sodium 137 Potassium 3.0 L Chloride 105 Carbon Dioxide 24 Anion Gap 8 BUN 15 D Creatinine 0.9 Creat Clearance w eGFR > 60 POC Glucometer 128.76406 Random Glucose 116 H D Calcium 7.1 L Phosphorus 1.4 L D Magnesium 1.4 L D Total Bilirubin 0.6 D AST 14 L D ALT 13 Alkaline Phosphatase 86 Total Protein 5.3 L Albumin 1.9 L Sinus rhythm currently Previous ECG 09/06 possible atrial fibrillation with RVR Echo: Pending Imaging - Results Chest X-ray: Report Reviewed EKG: Report Reviewed Problem List - Problems (1) Atrial fibrillation Code(s): I48.91 - UNSPECIFIED ATRIAL FIBRILLATION Qualifiers: Atrial fibrillation type: paroxysmal Qualified Code(s): I48.0 - Paroxysmal atrial fibrillation (2) HTN (hypertension) Code(s): I10 - ESSENTIAL (PRIMARY) HYPERTENSION Qualifiers: Hypertension type: essential hypertension Qualified Code(s): I10 - Essential (primary) hypertension (3) Diabetes mellitus Code(s): E11.9 - TYPE 2 DIABETES MELLITUS WITHOUT COMPLICATIONS Qualifiers: Diabetes mellitus type: type 2 Diabetes mellitus fci insulin use: without fci use Diabetes mellitus complication status: without complication Qualified Code(s): E11.9 - Type 2 diabetes mellitus without complications (4) BPH associated with nocturia Code(s): N40.1 - BENIGN PROSTATIC HYPERPLASIA WITH LOWER URINARY TRACT SYMP; R35.1 - NOCTURIA (5) Sepsis Code(s): A41.9 - SEPSIS, UNSPECIFIED ORGANISM Qualifiers: Sepsis type: sepsis due to unspecified organism Qualified Code(s): A41.9 - Sepsis, unspecified organism (6) UTI (urinary tract infection) Code(s): N39.0 - URINARY TRACT INFECTION, SITE NOT SPECIFIED Qualifiers: Urinary tract infection type: site unspecified Hematuria presence: without hematuria Qualified Code(s): N39.0 - Urinary tract infection, site not specified Assessment/Plan 1. Possible new onset atrial fibrillation - paroxysmal - periods of RVR [id number] score of at least 4 2. UTI/sepsis 3. Hypertension 4. Borderline type 2 diabetes mellitus 5. BPH PLAN: 1. Continue Cardizem 30 Q6, but eventually can be switched to Cardizem CD 120 mg once a day 2. Agree with Eliquis 5 mg BID as tolerated 3. Transthoracic echocardiography to assess LV/RV and valvular function 4. Continue management as per and ID service regarding antibiotic support Further plans are to follow Thank you for the consultation request Grzegorz Wong MD
[2017-09-06] MEDS: NAPH,MB-DB/K PH,MBDB POWDER PACKET PO SCH ×2 (13:36→21:18)
[2017-09-06] MEDS: SODIUM CHLORIDE 1,000 ML IV SCH ×2 (13:36→21:16)
--- NOTE | 2017-09-06 14:49 | PN ---
Addendum entered and electronically signed by Ayah Coronado, 15:36: addendum: correct diagnosis is sick thyroid; will repeat when acute illness resolves Original Note: Physical Exam: SUBJECTIVE: Patient seen and examined Patient resting in bed comfortably NAD. At 2 am went into afib with RVR 140bpm, while maintaining adequate BP. Afebrile. was given 10 mg iv pus cardizem, then placed on cardizem gtt. EKG did not show st changes. contineued to have paroxysmal a fib overnight on tlelemetry, reverted to sinus with PVC's in the morning. Now off cardizem gtt. Deneis CP, sob, diaphoresis, palpitations, heat/ cold intolerance, abd pain, back pain. OBJECTIVE: Vital Signs Period Temp Pulse Resp BP Sys/Case Pulse Ox Last 24 Hr 97.1 F-98.7 F 74-120 18-25 92-135/42-75 100-100 GENERAL: The patient is awake, alert, and fully oriented, in no acute distress. HEAD: Normal with no signs of trauma. EYES: PERRL, extraocular movements intact, sclera anicteric, conjunctiva clear. No ptosis. ENT: moist mucous membranes. NECK: supple, no jvd. LUNGS: Breath sounds equal, clear to auscultation bilaterally, slightly reduced at bases b/l HEART: Regular rate and rhythm, S1, S2 ABDOMEN: Soft, nontender, nondistended, normoactive bowel sounds, no guarding, no rebound, no hepatosplenomegaly, no masses. EXTREMITIES: 2+ pulses, warm, well-perfused, no edema. NEUROLOGICAL: Cranial nerves II through XII grossly intact. Normal speech, gait not observed. PSYCH: Normal mood, normal affect. SKIN: Warm, dry Laboratory Results - last 24 hr 09/05/17 09/05/17 09/05/17 16:59 20:20 22:00 WBC RBC Hgb Hct MCV MCH MCHC RDW Plt Count MPV Sodium 137 Potassium Chloride Carbon Dioxide Anion Gap BUN Creatinine Creat Clearance w eGFR POC Glucometer 188.60979 140.53409 Random Glucose Calcium Phosphorus Magnesium Total Bilirubin AST ALT Alkaline Phosphatase Total Protein Albumin TSH Free T4 09/06/17 09/06/17 09/06/17 06:00 06:00 06:03 WBC 6.8 D RBC 3.21 L Hgb 9.7 L Hct 28.3 L MCV 88.2 MCH 30.2 MCHC 34.3 RDW 14.5 Plt Count 181 MPV 8.9 Sodium 137 Potassium 3.0 L Chloride 105 Carbon Dioxide 24 Anion Gap 8 BUN 15 D Creatinine 0.9 Creat Clearance w eGFR > 60 POC Glucometer 128.08581 Random Glucose 116 H D Calcium 7.1 L Phosphorus 1.4 L D Magnesium 1.4 L D Total Bilirubin 0.6 D AST 14 L D ALT 13 Alkaline Phosphatase 86 Total Protein 5.3 L Albumin 1.9 L TSH Free T4 09/06/17 10:16 WBC RBC Hgb Hct MCV MCH MCHC RDW Plt Count MPV Sodium Potassium Chloride Carbon Dioxide Anion Gap BUN Creatinine Creat Clearance w eGFR POC Glucometer Random Glucose Calcium Phosphorus Magnesium Total Bilirubin AST ALT Alkaline Phosphatase Total Protein Albumin TSH 1.26 Free T4 1.48 H Active Medications Generic Name Dose Route Start Last Admin Trade Name Freq PRN Reason Stop Dose Admin Apixaban 5 mg 09/06/17 10:00 09/06/17 09:33 Eliquis - PO 5 mg BID KENJI Administration Chlorhexidine Gluconate 1 applic 09/05/17 22:00 09/05/17 21:57 Hibiclens For Decolonization - TP 1 applic HS KENJI Administration Diltiazem HCl 10 mg 09/06/17 02:48 Cardizem Injection - IVPUSH Q4H PRN HR >130 Diltiazem HCl 30 mg 09/06/17 09:00 09/06/17 12:00 Cardizem - PO Not Given Q6HPO KENJI Finasteride 5 mg 09/05/17 16:30 09/06/17 09:16 Proscar - PO 5 mg DAILY KENJI Administration Ceftriaxone Sodium 2 gm/ 100 mls @ 200 mls/hr 09/06/17 10:00 09/06/17 09:17 Dextrose IVPB 200 mls/hr DAILY KENJI Administration Sodium Chloride 1,000 mls @ 75 mls/hr 09/05/17 19:16 09/06/17 13:36 Normal Saline - IV 75 mls/hr ASDIR KENJI Administration Diltiazem HCl 125 mg/ Dextrose 125 mls @ 5 mls/hr 09/06/17 03:00 09/06/17 09: 30 IVPB 0 mg/hr TITR KENJI 0 mls/hr Protocol Titration 5 MG/HR Insulin Aspart 1 vial 09/05/17 22:00 09/06/17 11:31 Novolog Vial Sliding Scale - SQ 4 units ACHS KENJI Administration Protocol Mupirocin 1 applic 09/05/17 22:00 09/06/17 09:16 Bactroban Ointment (For Decolonization) - NS 09/10/17 09:59 1 applic BID KENJI Administration Ondansetron HCl 4 mg 09/06/17 09:24 Zofran Injection IVPUSH Q6H PRN NAUSEA AND/OR VOMITING Potassium Phos/Sodium Phos 1 packet 09/06/17 14:00 09/06/17 13:36 Phos-Nak Packet - PO 09/07/17 06:01 1 packet TID KENJI Administration Tamsulosin HCl 0.4 mg 09/06/17 08:30 09/06/17 08:43 Flomax - PO 0.4 mg DAILY@0830 KENJI Administration ASSESSMENT/PLAN: 87 year old male with a history of hypertension, DM, CAD, BPH is admitted for septic shock 2/2 UTI New onset paroxysmal a fib -cardiology consult appreciated; -continue Cardizem 30Q6; will switch to Cardizem CD 120 mg daily once more stable -CHADSVASC=4, Eliquis 5 mg BID started -f/u TTE -TFT abnormal may be causal Subclinical Hypothyroidism -symptomatic given new a fib -consider treatment Septic shock source -UTI vs Prostate abscess/prostatitis -resolved; hemodynamically stable -bladder US: 4 cm low attenuated density in prostate; very large prostate 115 cc volume; f/u transrectal US, PSA -Urology consult appreciated; maintain marcelino, finasteride/flomax -UA lactose fermenting gram negative bacilli -ID consult appreciated; cefepime day 2 DM -ISS, BGM HTN -BP on the low side, continue IVF and hold home meds -continue to hold meds for now FEN NS @ 75cc/hr Repleted k mag phos diabetic diet NOAC Disposition: ICU Problem List - Problems (1) Atrial fibrillation Code(s): I48.91 - UNSPECIFIED ATRIAL FIBRILLATION Qualifiers: Atrial fibrillation type: paroxysmal Qualified Code(s): I48.0 - Paroxysmal atrial fibrillation (2) BPH associated with nocturia Code(s): N40.1 - BENIGN PROSTATIC HYPERPLASIA WITH LOWER URINARY TRACT SYMP; R35.1 - NOCTURIA (3) Diabetes mellitus Code(s): E11.9 - TYPE 2 DIABETES MELLITUS WITHOUT COMPLICATIONS Qualifiers: Diabetes mellitus type: type 2 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: without intermediate school teacher use Diabetes mellitus complication status: without complication Qualified Code(s): E11.9 - Type 2 diabetes mellitus without complications (4) HTN (hypertension) Code(s): I10 - ESSENTIAL (PRIMARY) HYPERTENSION Qualifiers: Hypertension type: essential hypertension Qualified Code(s): I10 - Essential (primary) hypertension (5) Sepsis Code(s): A41.9 - SEPSIS, UNSPECIFIED ORGANISM Qualifiers: Sepsis type: sepsis due to unspecified organism Qualified Code(s): A41.9 - Sepsis, unspecified organism (6) UTI (urinary tract infection) Code(s): N39.0 - URINARY TRACT INFECTION, SITE NOT SPECIFIED Qualifiers: Urinary tract infection type: site unspecified Hematuria presence: without hematuria Qualified Code(s): N39.0 - Urinary tract infection, site not specified Visit type - Emergency Visit Emergency Visit: Yes ED Registration Date: 09/05/17 Care time: The patient presented to the Emergency Department on the above date and was hospitalized for further evaluation of their emergent condition. - New Patient This patient is new to me today: No - Critical Care Critical Care patient: Yes Total Critical Care Time (in minutes): 40 Critical Care Statement: The care of this patient involved high complexity decision making to prevent further life threatening deterioration of the patient 's condition and/or to evaluate & treat vital organ system(s) failure or risk of failure. - Discharge Referral Referred to [facility] No
[2017-09-06] MEDS: CHLORHEXIDINE GLUCONATE 4% CLEANSER FOR DECOLONIZATION TP SCH (21:17)
[2017-09-07] MEDS: dilTIAZem HCL 30 MG TABLET (FP) PO SCH ×6 (00:38→23:51)
[2017-09-07 06:26] LABS: HEMATOCRIT 25.9 % (35.4-49); HEMOGLOBIN 8.9 GM/dL (11.7-16.9); MCH 30.2 pg (25.7-33.7); MCHC 34.2 g/dl (32.0-35.9); MEAN CELL VOLUME 88.2 fl (80-96); MEAN PLT VOLUME 8.8 fl (7.5-11.1); PLATELET COUNT 147 K/MM3 (134-434); RBC 2.94 M/mm3 (4.00-5.60); RDW 14.7 % (11.9-15.9); WHITE BLOOD COUNT 6.1 K/mm3 (4.0-10.0)
[2017-09-07 06:28] LABS: ANION GAP 9 (8-16); BLOOD UREA NITROGEN 13 mg/dL (7-18); CALCIUM 7.1 mg/dL (8.5-10.1); CHLORIDE 106 mmol/L (98-107); CO2 23 mmol/L (21-32); CREATININE 0.7 mg/dL (0.7-1.3); GLUCOSE,RANDOM 84 mg/dL (74-106); MAGNESIUM 2.2 mg/dL (1.8-2.4); PHOSPHOROUS 2.4 mg/dL (2.5-4.9); POTASSIUM 3.9 mmol/L (3.5-5.1); SODIUM 138 mmol/L (136-145)
[2017-09-07] MEDS: DILTIAZEM INJECTION 125 MG in DEXTROSE 5%-WATER - 100 ML IVPB SCH (06:34)
[2017-09-07] MEDS: INSULIN SLIDING SCALE (NOVOLOG) 1 VIAL SQ SCH ×3 (06:35→17:04)
[2017-09-07] MEDS: NAPH,MB-DB/K PH,MBDB POWDER PACKET PO SCH (06:35)
[2017-09-07] MEDS ORDERED: PT OWN MED DRAWER 7, Y5N ONE ×3 (07:53→20:59)
--- NOTE | 2017-09-07 08:43 | PN ---
Progress Note (short form) - Note Progress Note: PULM/CCM Progress Note: -rate better controlled -afebrile -no acute events Active Medications Apixaban (Eliquis -) 5 mg PO BID [facility] Last Admin: 09/06/17 21:19 Dose: 5 mg Chlorhexidine Gluconate (Hibiclens For Decolonization -) 1 applic TP HS [facility] Last Admin: 09/06/17 21:17 Dose: 1 applic Diltiazem HCl (Cardizem Injection -) 10 mg IVPUSH Q4H PRN PRN Reason: HR >130 Diltiazem HCl (Cardizem -) 30 mg PO Q6HPO [facility] Last Admin: 09/07/17 07:00 Dose: 30 mg Finasteride (Proscar -) 5 mg PO DAILY [facility] Last Admin: 09/06/17 09:16 Dose: 5 mg Ceftriaxone Sodium 2 gm/ (Dextrose) 100 mls @ 200 mls/hr IVPB DAILY [facility] Last Admin: 09/06/17 09:17 Dose: 200 mls/hr Sodium Chloride (Normal Saline -) 1,000 mls @ 75 mls/hr IV ASDIR [facility] Last Admin: 09/06/17 21:16 Dose: 75 mls/hr Diltiazem HCl 125 mg/ Dextrose 125 mls @ 5 mls/hr IVPB TITR KENJI; 5 MG/HR PRN Reason: Protocol Last Admin: 09/07/17 06:34 Dose: Not Given Insulin Aspart (Novolog Vial Sliding Scale -) 1 vial SQ ACHS [facility] PRN Reason: Protocol Last Admin: 09/07/17 06:35 Dose: Not Given Mupirocin (Bactroban Ointment (For Decolonization) -) 1 applic NS BID [facility] Stop: 09/10/17 09:59 Last Admin: 09/06/17 21:17 Dose: 1 applic Ondansetron HCl (Zofran Injection) 4 mg IVPUSH Q6H PRN PRN Reason: NAUSEA AND/OR VOMITING Tamsulosin HCl (Flomax -) 0.4 mg PO DAILY@0830 [facility] Last Admin: 09/06/17 08:43 Dose: 0.4 mg Vital Signs Temp 97.9 F 09/07/17 08:00 Pulse 117 H 09/07/17 08:00 Resp 23 09/07/17 08:00 BP 90/56 09/07/17 08:00 Pulse Ox 97 09/07/17 08:00 Intake & Output 09/06/17 09/06/17 09/07/17 11:59 23:59 12:59 Intake Total 545 1612.5 900 Output Total 900 850 400 Balance -355 762.5 500 Weight 90.492 kg 91.263 kg Intake: IV 545 912.5 900 Cardizem Injection - 125 20 12.5 mg In D5w - 100 ml @ 5 MG /HR 5 mls/hr IVPB TITR KENJI Rx#:[id number] Normal Saline - 1,000 ml 525 900 900 @ 75 mls/hr IV ASDIR KENJI Rx#:[id number] IVPB 500 Oral 200 Output: Urine 900 850 400 Dee 900 850 400 Other: Voiding Method Indwelling Catheter Indwelling Catheter Indwelling Catheter Bowel Movement No Weight Measurement Method Built in Bedscale Built in Bedscale Exam: General: awake, alert and cooperative w/o distress: denies hammonds/cp/n/v HEENT: PERRL Pulm: CTA CV: NSR Ext: WWP Neuro: AOx3 CN grossly intact Microbiology 09/04/17 16:10 Blood - Peripheral Venous Blood Culture - Preliminary NO GROWTH OBTAINED AFTER 48 HOURS, INCUBATION TO CONTINUE FOR 3 DAYS. 09/04/17 16:10 Blood - Peripheral Venous Blood Culture - Preliminary NO GROWTH OBTAINED AFTER 48 HOURS, INCUBATION TO CONTINUE FOR 3 DAYS. 09/04/17 16:20 Urine - Urine - Catheterized Urine Culture - Preliminary Lactose Fermenting Neg Bacilli - Problems (1) Sepsis Code(s): A41.9 - SEPSIS, UNSPECIFIED ORGANISM Qualifiers: Sepsis type: sepsis due to unspecified organism Qualified Code(s): A41.9 - Sepsis, unspecified organism (2) UTI (urinary tract infection) Code(s): N39.0 - URINARY TRACT INFECTION, SITE NOT SPECIFIED Qualifiers: Urinary tract infection type: site unspecified Hematuria presence: without hematuria Qualified Code(s): N39.0 - Urinary tract infection, site not specified Assessment/Plan Septic Shock due to UTI: GNR, resolved New afib w/ RVR, improved on CCB ABX coverage per ID, ceftriaxone x 7 days PO CCB VTE prophylaxis PO as tolerated Glycemic control Strict I & O ok for floor if rate stays wnl William Knutson Pulm/CCM CCT: 35m Problem List - Problems (1) Sepsis Code(s): A41.9 - SEPSIS, UNSPECIFIED ORGANISM Qualifiers: Sepsis type: sepsis due to unspecified organism Qualified Code(s): A41.9 - Sepsis, unspecified organism (2) UTI (urinary tract infection) Code(s): N39.0 - URINARY TRACT INFECTION, SITE NOT SPECIFIED Qualifiers: Urinary tract infection type: site unspecified Hematuria presence: without hematuria Qualified Code(s): N39.0 - Urinary tract infection, site not specified
--- NOTE | 2017-09-07 08:49 | PN ---
Progress Note (short form) - Note Progress Note: no complaints no fevers intermittent afib Vital Signs Period Temp Pulse Resp BP Sys/Case Pulse Ox Last 24 Hr 97.1 F-98 F 66-117 18-25 84-119/43-64 97-100 cor-rrr, tachycardic lungs decreased bs at bases abd soft,nt ext no edema marcelino CBC, BMP 09/07/17 05:50 09/07/17 05:50 Microbiology 09/04/17 16:10 Blood - Peripheral Venous Blood Culture - Preliminary NO GROWTH OBTAINED AFTER 48 HOURS, INCUBATION TO CONTINUE FOR 3 DAYS. 09/04/17 16:10 Blood - Peripheral Venous Blood Culture - Preliminary NO GROWTH OBTAINED AFTER 48 HOURS, INCUBATION TO CONTINUE FOR 3 DAYS. 09/04/17 16:20 Urine - Urine - Catheterized Urine Culture - Preliminary Lactose Fermenting Neg Bacilli a/p sepsis/UTI afib (new) abnl prostate on imaging continue ceftriaxone psa f/u cultures urology followup cardiology followup Problem List - Problems (1) Sepsis Code(s): A41.9 - SEPSIS, UNSPECIFIED ORGANISM Qualifiers: Sepsis type: sepsis due to unspecified organism Qualified Code(s): A41.9 - Sepsis, unspecified organism (2) UTI (urinary tract infection) Code(s): N39.0 - URINARY TRACT INFECTION, SITE NOT SPECIFIED Qualifiers: Urinary tract infection type: site unspecified Hematuria presence: without hematuria Qualified Code(s): N39.0 - Urinary tract infection, site not specified
[2017-09-07] MEDS: TAMSULOSIN HCL 0.4 MG CAP.ER.24H (FP) PO SCH (08:51)
[2017-09-07] MEDS: FINASTERIDE 5 MG TABLET (FP) PO SCH (09:11)
[2017-09-07] MEDS: APIXABAN 5 MG TABLET PO SCH ×2 (09:11→21:06)
[2017-09-07] MEDS: CEFTRIAXONE 2 GM in DEXTROSE 5%-WATER - 100 ML IVPB SCH (09:11)
[2017-09-07] MEDS: MUPIROCIN 2% TOPICAL OINTMENT FOR DECOLONIZATION NS SCH ×2 (09:11→21:15)
[2017-09-07] MEDS ORDERED: NAPH,MB-DB/K PH,MBDB POWDER PACKET PO ONE (10:30)
--- NOTE | 2017-09-07 10:31 | PN ---
Progress Note (short form) - Note Progress Note: Subjective: no fever or chills, no CP or palpitations Objective: Vital Signs: Last Vital Signs Temp Pulse Resp BP Pulse Ox 97.9 F 117 H 23 90/56 97 09/07/17 08:00 09/07/17 08:00 09/07/17 08:00 09/07/17 08:00 09/07/17 08:00 Laboratory Results - last 24 hr 09/06/17 09/06/17 09/07/17 10:16 11:18 05:50 WBC 6.1 RBC 2.94 L Hgb 8.9 L Hct 25.9 L MCV 88.2 MCH 30.2 MCHC 34.2 RDW 14.7 Plt Count 147 MPV 8.8 Sodium Potassium Chloride Carbon Dioxide Anion Gap BUN Creatinine POC Glucometer [phone] Random Glucose Calcium Phosphorus Magnesium TSH 1.26 Free T4 1.48 H 09/07/17 05:50 WBC RBC Hgb Hct MCV MCH MCHC RDW Plt Count MPV Sodium 138 Potassium 3.9 D Chloride 106 Carbon Dioxide 23 Anion Gap 9 BUN 13 Creatinine 0.7 D POC Glucometer Random Glucose 84 D Calcium 7.1 L Phosphorus 2.4 L D Magnesium 2.2 D TSH Free T4 Physical Exam: NAD , pleasant and cooperative CV: RRR, no MRG Lungs: CTAB Abd: soft, NT, ND , NL BS Ext: no edema ASSESSMENT AND PLAN: 87 y/o man with h/o HTN, DM , recent flu infection who presented not feeling well and was found to have septic shock from UTI. 1- Septic shock /complicated UTI//Pyelo . shock resolved, off pressors .doing well U cx with E coli, sensitive to CTX - cont ceftriaxone - blood cx NGTD x 48 hr 2-New onset A fib . now in sinus .off cardizem gtt - cont cardizem 30 q6hr as BP is still in 90s . hopefully tomorow can switch to CD 120 - CHADSVASC 3 . 3.2 % risk of stroke /year. cont eliquis - echo pending . - TFTs indicate sich euthyroid syndrome .repeat when in normal state of health 3- dilated CBD on US . no signs or LFTS abn - out pt MRCP 4- Prostatic mass: 4 cm . unlikely absecess. could be benign or malignant mass -transrectal US . - PSA , although might not be very helpful is pending 3- HTN: hold all BP meds 4- DM : SSI -hold metformin dispo :transfer to tele Visit type - Emergency Visit Emergency Visit: Yes ED Registration Date: 09/05/17 Care time: The patient presented to the Emergency Department on the above date and was hospitalized for further evaluation of their emergent condition. - New Patient This patient is new to me today: No - Critical Care Critical Care patient: No
[2017-09-07] MEDS ORDERED: HEMOQUE TEST 1 EACH EACH ONE (10:32)
[2017-09-07] MEDS: SODIUM CHLORIDE 1,000 ML IV SCH ×2 (17:04→18:22)
[2017-09-07] MEDS ORDERED: ONDANSETRON 4 MG/2 ML VIAL IVPUSH PRN (18:22)
--- NOTE | 2017-09-07 20:09 | EKG ---
Test Reason : Blood Pressure : / mmHG Vent. Rate : 095 BPM Atrial Rate : 095 BPM P-R Int : 242 ms QRS Dur : 090 ms QT Int : 370 ms P-R-T Axes : 063 -42 030 degrees QTc Int : 464 ms SINUS RHYTHM WITH 1ST DEGREE A-V BLOCK WITH OCCASIONAL PREMATURE VENTRICULAR COMPLEXES LEFT AXIS DEVIATION ABNORMAL ECG WHEN COMPARED WITH ECG OF 06-SEP-2017 02:17, SINUS RHYTHM HAS REPLACED ATRIAL FIBRILLATION T WAVE VARIATION VENT. RATE HAS DECREASED Confirmed by TOOTIE FARLEY MD ([id number]) on 09/07/2017 8:09:00 PM Referred By: Lynn LORD Confirmed By:TOOTIE FARLEY MD
--- NOTE | 2017-09-07 20:29 | EKG ---
Test Reason : Blood Pressure : / mmHG Vent. Rate : 139 BPM Atrial Rate : 127 BPM P-R Int : 000 ms QRS Dur : 080 ms QT Int : 306 ms P-R-T Axes : 000 -46 091 degrees QTc Int : 465 ms ATRIAL FIBRILLATION WITH RAPID VENTRICULAR RESPONSE BASELINE ARTIFACT ABNORMAL ECG WHEN COMPARED WITH ECG OF 04-SEP-2017 15:21, ATRIAL FIBRILLATION HAS REPLACED SINUS RHYTHM VENT. RATE HAS INCREASED Confirmed by MIGUELITO CARRERO, TOOTIE ([id number]) on 09/07/2017 8:29:20 PM Referred By: Confirmed By:TOOTIE FARLEY MD
--- NOTE | 2017-09-07 21:01 | PN ---
Progress Note, Physician Chief Complaint: Not in distress History of Present Illness: Patient was seen and examined. Awake and alert. Chart was reviewed Denies chest pain, SOB or palpitations Periods of rapid ventricular response suggests AF burden - Current Medication List Current Medications: Active Medications Apixaban (Eliquis -) 5 mg PO BID [facility] Chlorhexidine Gluconate (Hibiclens For Decolonization -) 1 applic TP HS [facility] Diltiazem HCl (Cardizem -) 30 mg PO Q6HPO [facility] Finasteride (Proscar -) 5 mg PO DAILY [facility] Ceftriaxone Sodium 2 gm/ (Dextrose) 100 mls @ 200 mls/hr IVPB DAILY [facility] Sodium Chloride (Normal Saline -) 1,000 mls @ 75 mls/hr IV ASDIR [facility] Last Admin: 09/07/17 18:22 Dose: 75 mls/hr Insulin Aspart (Novolog Vial Sliding Scale -) 1 vial SQ TIDAC [facility] PRN Reason: Protocol Last Admin: 09/07/17 17:04 Dose: Not Given Mupirocin (Bactroban Ointment (For Decolonization) -) 1 applic NS BID [facility] Stop: 09/10/17 09:59 Ondansetron HCl (Zofran Injection) 4 mg IVPUSH Q6H PRN PRN Reason: NAUSEA AND/OR VOMITING Tamsulosin HCl (Flomax -) 0.4 mg PO DAILY@0830 [facility] - Objective Vital Signs: Vital Signs Temperature 97.6 F 09/07/17 18:00 Pulse Rate 85 09/07/17 20:00 Respiratory Rate 21 09/07/17 20:33 Blood Pressure 107/63 09/07/17 20:00 O2 Sat by Pulse Oximetry (%) 100 09/07/17 20:33 Constitutional: Yes: Well Nourished Eyes: Yes: PERRL HENT: Yes: Atraumatic Neck: Yes: Supple Cardiovascular: Yes: Regular Rate and Rhythm, S1, S2 Respiratory: Yes: Diminished Gastrointestinal: Yes: Normal Bowel Sounds, Soft. No: Tenderness Edema: No Additional Findings/Remarks: - Review of Systems Constitutional: denies: Chills. denies: Fever Cardiovascular: denies: Chest Pain, Palpitations, Shortness of Breath Respiratory: denies: Cough, Hemoptysis, Orthopnea, PND, SOB, SOB on Exertion Gastrointestinal: denies: Abdominal Pain, Constipation, Diarrhea, Melena, Nausea , Rectal Bleeding Genitourinary: reports: Frequency Musculoskeletal: denies: Joint Pain Neurological: denies: Dizziness, Headache, Seizure, Syncope Labs: CBC, BMP 09/07/17 05:50 09/07/17 05:50 INR, PTT INR 1.17 (0.82-1.09) H 09/05/17 05:30 Laboratory Results - last 24 hr 09/06/17 09/06/17 09/07/17 16:57 21:23 05:50 WBC 6.1 RBC 2.94 L Hgb 8.9 L Hct 25.9 L MCV 88.2 MCH 30.2 MCHC 34.2 RDW 14.7 Plt Count 147 MPV 8.8 Sodium Potassium Chloride Carbon Dioxide Anion Gap BUN Creatinine POC Glucometer 167.08991 151.33485 Random Glucose Calcium Phosphorus Magnesium 09/07/17 09/07/17 05:50 09:39 WBC RBC Hgb Hct MCV MCH MCHC RDW Plt Count MPV Sodium 138 Potassium 3.9 D Chloride 106 Carbon Dioxide 23 Anion Gap 9 BUN 13 Creatinine 0.7 D POC Glucometer 145.09713 Random Glucose 84 D Calcium 7.1 L Phosphorus 2.4 L D Magnesium 2.2 D Problem List - Problems (1) Atrial fibrillation Code(s): I48.91 - UNSPECIFIED ATRIAL FIBRILLATION Qualifiers: Atrial fibrillation type: paroxysmal Qualified Code(s): I48.0 - Paroxysmal atrial fibrillation (2) HTN (hypertension) Code(s): I10 - ESSENTIAL (PRIMARY) HYPERTENSION Qualifiers: Hypertension type: essential hypertension Qualified Code(s): I10 - Essential (primary) hypertension (3) Diabetes mellitus Code(s): E11.9 - TYPE 2 DIABETES MELLITUS WITHOUT COMPLICATIONS Qualifiers: Diabetes mellitus type: type 2 Diabetes mellitus continuous churn buttermaker insulin use: without continuous churn buttermaker use Diabetes mellitus complication status: without complication Qualified Code(s): E11.9 - Type 2 diabetes mellitus without complications (4) BPH associated with nocturia Code(s): N40.1 - BENIGN PROSTATIC HYPERPLASIA WITH LOWER URINARY TRACT SYMP; R35.1 - NOCTURIA (5) Sepsis Code(s): A41.9 - SEPSIS, UNSPECIFIED ORGANISM Qualifiers: Sepsis type: sepsis due to unspecified organism Qualified Code(s): A41.9 - Sepsis, unspecified organism (6) UTI (urinary tract infection) Code(s): N39.0 - URINARY TRACT INFECTION, SITE NOT SPECIFIED Qualifiers: Urinary tract infection type: site unspecified Hematuria presence: without hematuria Qualified Code(s): N39.0 - Urinary tract infection, site not specified Assessment/Plan 1. Possible new onset atrial fibrillation - paroxysmal - periods of RVR [id number] score of at least 4 2. UTI/sepsis/ post septic shock 3. Hypertension 4. Borderline type 2 diabetes mellitus 5. BPH 6. Sick euthyroid PLAN: 1. Continue Cardizem 30 Q6, but eventually can be switched to Cardizem CD 120 mg once a day (possibly in AM and then may be up-titrated) Other option is to use beta lesley 2. Continue Eliquis 5 mg BID as tolerated 3. Transthoracic echocardiography to assess LV/RV and valvular function 4. Continue management as per and ID service regarding antibiotic support Further plans are to follow. Patient was seen and examined for 30 minutes Grzegorz Wong MD
[2017-09-07] MEDS: CHLORHEXIDINE GLUCONATE 4% CLEANSER FOR DECOLONIZATION TP SCH (21:15)
[2017-09-08 06:20] LABS: MAGNESIUM 1.7 mg/dL (1.8-2.4); PHOSPHOROUS 2.7 mg/dL (2.5-4.9); POTASSIUM 3.9 mmol/L (3.5-5.1)
[2017-09-08] MEDS: INSULIN SLIDING SCALE (NOVOLOG) 1 VIAL SQ SCH ×3 (06:23→16:30)
[2017-09-08] MEDS: dilTIAZem HCL 30 MG TABLET (FP) PO SCH (06:23)
--- NOTE | 2017-09-08 07:56 | PN ---
Progress Note, Physician Chief Complaint: ID Asymptomatic Getting Ceftriaxone Afebrile Had been 103 at admission Day 4 admission - Current Medication List Current Medications: Active Medications Apixaban (Eliquis -) 5 mg PO BID [facility] Last Admin: 09/07/17 21:06 Dose: 5 mg Chlorhexidine Gluconate (Hibiclens For Decolonization -) 1 applic TP HS [facility] Last Admin: 09/07/17 21:15 Dose: Not Given Diltiazem HCl (Cardizem -) 30 mg PO Q6HPO [facility] Last Admin: 09/08/17 06:23 Dose: 30 mg Finasteride (Proscar -) 5 mg PO DAILY [facility] Ceftriaxone Sodium 2 gm/ (Dextrose) 100 mls @ 200 mls/hr IVPB DAILY [facility] Sodium Chloride (Normal Saline -) 1,000 mls @ 75 mls/hr IV ASDIR [facility] Last Admin: 09/07/17 18:22 Dose: 75 mls/hr Insulin Aspart (Novolog Vial Sliding Scale -) 1 vial SQ TIDAC [facility] PRN Reason: Protocol Last Admin: 09/08/17 06:23 Dose: Not Given Mupirocin (Bactroban Ointment (For Decolonization) -) 1 applic NS BID [facility] Stop: 09/10/17 09:59 Last Admin: 09/07/17 21:15 Dose: Not Given Ondansetron HCl (Zofran Injection) 4 mg IVPUSH Q6H PRN PRN Reason: NAUSEA AND/OR VOMITING Tamsulosin HCl (Flomax -) 0.4 mg PO DAILY@0830 [facility] - Objective Vital Signs: Vital Signs Temperature 97.5 F L 09/08/17 06:00 Pulse Rate 80 09/08/17 06:00 Respiratory Rate 14 09/08/17 06:00 Blood Pressure 121/90 09/08/17 06:00 O2 Sat by Pulse Oximetry (%) 100 09/07/17 20:33 Constitutional: Yes: No Distress Neck: Yes: WNL, Supple Cardiovascular: Yes: S2 Respiratory: Yes: WNL, Regular, CTA Bilaterally Gastrointestinal: Yes: WNL, Normal Bowel Sounds, Soft. No: Tenderness Genitourinary: Yes: Other (Dee) Labs: CBC, BMP 09/07/17 05:50 09/08/17 05:00 INR, PTT INR 1.17 (0.82-1.09) H 09/05/17 05:30 Assessment/Plan Microbiology 09/04/17 16:20 Urine - Urine - Catheterized Urine Culture - Final Escherichia Coli 09/04/17 16:10 Blood - Peripheral Venous Blood Culture - Preliminary NO GROWTH OBTAINED AFTER 72 HOURS, INCUBATION TO CONTINUE FOR 2 DAYS. 09/04/17 16:10 Blood - Peripheral Venous Blood Culture - Preliminary NO GROWTH OBTAINED AFTER 72 HOURS, INCUBATION TO CONTINUE FOR 2 DAYS. Laboratory Tests 09/04/17 09/07/17 09/07/17 16:20 05:50 05:50 WBC 6.1 Hgb 8.9 L Hct 25.9 L Plt Count 147 BUN 13 Creatinine 0.7 D Ur Leukocyte Esterase 2+ H Urine RBC 40-60 Urine WBC 40-60 Assessment As discussed with Dr Woo As not bacteremic E Coli sensitiive Plan By tomorrow could switch to po therapy Ceftin 500mg bid for about 7 days Kindly recall as needed Jodee CARRERO
[2017-09-08] MEDS: TAMSULOSIN HCL 0.4 MG CAP.ER.24H (FP) PO SCH (08:53)
[2017-09-08] MEDS ORDERED: PT OWN MED DRAWER 7, Y5N ONE ×2 (08:57→09:08)
[2017-09-08] MEDS: APIXABAN 5 MG TABLET PO SCH ×2 (09:07→22:36)
[2017-09-08] MEDS: CEFTRIAXONE 2 GM in DEXTROSE 5%-WATER - 100 ML IVPB SCH (09:07)
[2017-09-08] MEDS: FINASTERIDE 5 MG TABLET (FP) PO SCH (09:09)
--- NOTE | 2017-09-08 11:19 | PN ---
Teaching Attending Note Name of Resident: Michael Merino ATTENDING PHYSICIAN STATEMENT I saw and evaluated the patient. I reviewed the resident's note and discussed the case with the resident. I agree with the resident's findings and plan as documented. SUBJECTIVE: no fever or chills, no CP or palpitations . no ABd pain or other complaints No events over night OBJECTIVE: NAD, pleasant and cooperative CV: RRR, no MRG Lungs: CTAB Abd: soft, NT, ND , NL BS Ext: no edema ASSESSMENT AND PLAN: 87 y/o man with h/o HTN, DM , recent flu infection who presented not feeling well and was found to have septic shock from UTI. 1- Septic shock /complicated UTI/Pyelo .doing well U cx with E coli, sensitive to CTX - cont ceftriaxone for today , will switch to po tomorrow - blood cx NGTD x 72 hr 2-New onset A fib. now in sinus. - switch to cardizem CD 120 - CHADSVASC 3 . 3.2 % risk of stroke /year. cont eliquis - echo doen this am , pending read - TFTs indicate sick euthyroid syndrome .repeat when in normal state of health 3- Dilated CBD on US . no signs or LFTS abn - out pt MRCP 4- Prostatic mass: 4 cm . unlikely abscess. could be benign or malignant mass -transrectal US pendign . - PSA , although might not be very helpful is pending - cont marcelino for now , will d/w uro , hopefully we can remove adn give voiding trial 3- HTN: hold all home BP meds.now on cardizem 4- DM : SSI -hold metformin dispo :possible dc tomorrow. PT eval .
[2017-09-08] MEDS: MUPIROCIN 2% TOPICAL OINTMENT FOR DECOLONIZATION NS SCH ×2 (11:54→22:39)
--- NOTE | 2017-09-08 12:20 | PN ---
Progress Note, Physician History of Present Illness: Remains in sinus rhythm with episodes of PAF, afebrile. - Current Medication List Current Medications: Active Medications Apixaban (Eliquis -) 5 mg PO BID [facility] Last Admin: 09/08/17 09:07 Dose: 5 mg Chlorhexidine Gluconate (Hibiclens For Decolonization -) 1 applic TP HS [facility] Last Admin: 09/07/17 21:15 Dose: Not Given Diltiazem HCl (Cardizem Cd -) 120 mg PO DAILY [facility] Last Admin: 09/08/17 11:07 Dose: 120 mg Finasteride (Proscar -) 5 mg PO DAILY [facility] Last Admin: 09/08/17 09:09 Dose: 5 mg Ceftriaxone Sodium 2 gm/ (Dextrose) 100 mls @ 200 mls/hr IVPB DAILY [facility] Last Admin: 09/08/17 09:07 Dose: 200 mls/hr Sodium Chloride (Normal Saline -) 1,000 mls @ 75 mls/hr IV ASDIR [facility] Last Admin: 09/07/17 18:22 Dose: 75 mls/hr Insulin Aspart (Novolog Vial Sliding Scale -) 1 vial SQ TIDAC [facility] PRN Reason: Protocol Last Admin: 09/08/17 11:12 Dose: Not Given Mupirocin (Bactroban Ointment (For Decolonization) -) 1 applic NS BID [facility] Stop: 09/10/17 09:59 Last Admin: 09/08/17 11:54 Dose: 1 applic Ondansetron HCl (Zofran Injection) 4 mg IVPUSH Q6H PRN PRN Reason: NAUSEA AND/OR VOMITING Tamsulosin HCl (Flomax -) 0.4 mg PO DAILY@0830 [facility] Last Admin: 09/08/17 08:53 Dose: 0.4 mg - Objective Vital Signs: Vital Signs Temperature 97.5 F L 09/08/17 06:00 Pulse Rate 81 09/08/17 12:07 Respiratory Rate 23 09/08/17 12:07 Blood Pressure 115/78 09/08/17 12:07 O2 Sat by Pulse Oximetry (%) 100 09/08/17 09:00 Constitutional: Yes: No Distress, Calm Neck: Yes: Supple Cardiovascular: Yes: Regular Rate and Rhythm Respiratory: Yes: Regular, CTA Bilaterally, On Nasal O2 Gastrointestinal: Yes: Normal Bowel Sounds, Soft, Abdomen, Obese Edema: No Labs: CBC, BMP 09/07/17 05:50 09/08/17 05:00 INR, PTT INR 1.17 (0.82-1.09) H 09/05/17 05:30 - ....Imaging EKG: Report Reviewed (Tele: PAF->SR) Problem List - Problems (1) Atrial fibrillation Code(s): I48.91 - UNSPECIFIED ATRIAL FIBRILLATION Qualifiers: Atrial fibrillation type: paroxysmal Qualified Code(s): I48.0 - Paroxysmal atrial fibrillation (2) Diabetes mellitus Code(s): E11.9 - TYPE 2 DIABETES MELLITUS WITHOUT COMPLICATIONS Qualifiers: Diabetes mellitus type: type 2 Diabetes mellitus intermediate project manager insulin use: without intermediate project manager use Diabetes mellitus complication status: without complication Qualified Code(s): E11.9 - Type 2 diabetes mellitus without complications (3) HTN (hypertension) Code(s): I10 - ESSENTIAL (PRIMARY) HYPERTENSION Qualifiers: Hypertension type: essential hypertension Qualified Code(s): I10 - Essential (primary) hypertension (4) UTI (urinary tract infection) Code(s): N39.0 - URINARY TRACT INFECTION, SITE NOT SPECIFIED Qualifiers: Urinary tract infection type: site unspecified Hematuria presence: without hematuria Qualified Code(s): N39.0 - Urinary tract infection, site not specified Assessment/Plan 1. Paroxysmal atrial fibrillation now in SR with periods of RVR [id number] score of at least 4 2. E. Coli UTI 3. Hypertension 4. Borderline type 2 diabetes mellitus 5. BPH 6. Sick euthyroid PLAN: 1. Continue Cardizem CD 120 mg once a day, resume carvedilol 6.25 bid 2. Continue Eliquis 5 mg BID as tolerated 3. F/u transthoracic echocardiography to assess LV/RV and valvular function 4. Complete abx course per ID input.
[2017-09-08] MEDS: CARVEDILOL 6.25 MG TABLET (FP) PO SCH ×2 (13:27→22:36)
[2017-09-08] MEDS ORDERED: MAGNESIUM OXIDE 400 MG TABLET (FP) PO ONE (16:22)
--- NOTE | 2017-09-08 19:49 | PN ---
Physical Exam: SUBJECTIVE: Patient seen and examined No acute events overnight. Patient feels well this morning. No events on monitor. Patient denies fever, chills, chest pain, abdominal pain. OBJECTIVE: Vital Signs Period Temp Pulse Resp BP Sys/Case Pulse Ox Last 24 Hr 97.3 F-98.6 F 68-96 14-23 97-138/56-101 100-100 GENERAL: The patient is awake, alert, and fully oriented, in no acute distress. HEAD: Normal with no signs of trauma. EYES: PERRL, EOMI, sclera anicteric, conjunctiva clear. No ptosis. ENT: Oropharynx clear without exudates, moist mucous membranes. NECK: Trachea midline, full range of motion, supple. LUNGS: Breath sounds equal, clear to auscultation bilaterally, no wheezes, no crackles, no accessory muscle use. HEART: Regular rate and rhythm, S1, S2 without murmur, rub or gallop. ABDOMEN: Soft, nontender, nondistended, normoactive bowel sounds, no guarding, no rebound, no hepatosplenomegaly, no masses. : Dee in place EXTREMITIES: 2+ pulses, warm, well-perfused, no edema. NEUROLOGICAL: Cranial nerves II through XII grossly intact. Normal speech, gait not observed. PSYCH: Normal mood, normal affect. SKIN: Warm, dry, normal turgor, no rashes or lesions noted Laboratory Results - last 24 hr 09/06/17 09/07/17 09/07/17 15:28 17:02 21:05 Potassium POC Glucometer 130.43149 147.85895 Phosphorus Magnesium Free T3 1.2 L 09/08/17 09/08/17 09/08/17 05:00 06:16 11:11 Potassium 3.9 POC Glucometer 129.93431 69.89676 Phosphorus 2.7 Magnesium 1.7 L D Free T3 09/08/17 16:28 Potassium POC Glucometer 142 Phosphorus Magnesium Free T3 Active Medications Generic Name Dose Route Start Last Admin Trade Name Freq PRN Reason Stop Dose Admin Apixaban 5 mg 09/07/17 22:00 09/08/17 09:07 Eliquis - PO 5 mg BID [facility] Administration Carvedilol 6.25 mg 09/08/17 12:45 09/08/17 13:27 Coreg - PO 6.25 mg BID [facility] Administration Chlorhexidine Gluconate 1 applic 09/07/17 22:00 09/07/17 21:15 Hibiclens For Decolonization - TP Not Given HS [facility] Diltiazem HCl 120 mg 09/08/17 10:00 09/08/17 11:07 Cardizem Cd - PO 120 mg DAILY [facility] Administration Finasteride 5 mg 09/08/17 10:00 09/08/17 09:09 Proscar - PO 5 mg DAILY [facility] Administration Ceftriaxone Sodium 2 gm/ 100 mls @ 200 mls/hr 09/08/17 10:00 09/08/17 09:07 Dextrose IVPB 200 mls/hr DAILY [facility] Administration Sodium Chloride 1,000 mls @ 75 mls/hr 09/07/17 18:22 09/07/17 18:22 Normal Saline - IV 75 mls/hr ASDIR [facility] Administration Insulin Aspart 1 vial 09/07/17 11:00 09/08/17 16:30 Novolog Vial Sliding Scale - SQ Not Given TIDAC [facility] Protocol Mupirocin 1 applic 09/07/17 22:00 09/08/17 11:54 Bactroban Ointment (For Decolonization) - NS 09/10/17 09:59 1 applic BID [facility] Administration Ondansetron HCl 4 mg 09/07/17 18:22 Zofran Injection IVPUSH Q6H PRN NAUSEA AND/OR VOMITING Tamsulosin HCl 0.4 mg 09/08/17 08:30 09/08/17 08:53 Flomax - PO 0.4 mg DAILY@0830 [facility] Administration ASSESSMENT/PLAN: 87 year old M with pmh of HTN, DM, and recent flu presented with septic shock 2/ 2 to UTI and also found to have paroxysmal atrial fibrillation. #Septic shock 2/2 to UTI -Urine growing E. Coli, cephalosporin resistant -Blood cultures NGTD -Continue Ceftriaxone Day 4 2g daily. Per ID can switch to Ceftin 500 mg po bid. Will treat for 7 days. #Paroxysmal Atrial Fibrillation -Currently in sinus rhythm on monitor -No events overnight -Switch cardizem 30 q6h to cardizem CD 120 daily -Echo reviewed, EF 50-55%. No regional wall abnormalities, mild TR/CT, LA mildly dilated, Mild mitral calcification -Continue eliquis 5 mg po bid, [id number] score of 3 -Coreg 6.25 mg bid restarted per cardiology #Prostate mass -Transrectal ultrasound pending -PSA pending -Dee will be discontinued at midnight and can evaluate if patient can void in the AM #HTN -Hold antihypertensives given recent episode of hypotension -Currently on cardizem CD 120 for Atrial fibrillation -Monitor BP #DM -BGM achs -ISS achs #BPH -continue flomax 0.4 mg po daily #FEN/GI -IVF NS @ 75 cc/hr -monitor BMP -Diabetic Diet #PPx -Eliquis 5 mg po bid #Dispo: Possible DC in AM. PT evaluation today: 20 feet. Will need to re- evaluate. Visit type - Emergency Visit Emergency Visit: Yes ED Registration Date: 09/05/17 Care time: The patient presented to the Emergency Department on the above date and was hospitalized for further evaluation of their emergent condition. - New Patient This patient is new to me today: Yes Date on this admission: 09/08/17 - Critical Care Critical Care patient: No
[2017-09-08] MEDS: SODIUM CHLORIDE 1,000 ML IV SCH (22:36)
[2017-09-08] MEDS: CHLORHEXIDINE GLUCONATE 4% CLEANSER FOR DECOLONIZATION TP SCH (22:39)
[2017-09-09] MEDS: INSULIN SLIDING SCALE (NOVOLOG) 1 VIAL SQ SCH ×3 (06:36→17:04)
[2017-09-09 08:07] LABS: MAGNESIUM 1.7 mg/dL (1.8-2.4); PHOSPHOROUS 2.5 mg/dL (2.5-4.9)
--- NOTE | 2017-09-09 08:40 | PN ---
Progress Note (short form) - Note Progress Note: marcelino removed voiding spontaneously urine clear cont flomax/proscar outpt f/u
[2017-09-09] MEDS: TAMSULOSIN HCL 0.4 MG CAP.ER.24H (FP) PO SCH (09:00)
[2017-09-09] MEDS ORDERED: PT OWN MED DRAWER 7, Y5N ONE (10:16)
[2017-09-09] MEDS: APIXABAN 5 MG TABLET PO SCH ×2 (10:32→21:48)
[2017-09-09] MEDS: FINASTERIDE 5 MG TABLET (FP) PO SCH (10:32)
[2017-09-09] MEDS ORDERED: CEFTRIAXONE IN IS-OSM DEXTROSE 2 GM/50 ML BAG IVPB SCH (10:45)
[2017-09-09] MEDS: CARVEDILOL 6.25 MG TABLET (FP) PO SCH ×2 (11:11→21:48)
[2017-09-09] MEDS: CEFTRIAXONE 2 GM in DEXTROSE 5%-WATER - 100 ML IVPB SCH (11:12)
[2017-09-09] MEDS ORDERED: MAGNESIUM OXIDE 400 MG TABLET (FP) PO ONE (14:00)
[2017-09-09] MEDS ORDERED: POLYETHYLENE GLYCOL 3350 119 GM BTL PO ONE (14:01)
[2017-09-09 17:30] LABS: INR 1.2 (0.82-1.09); PROTHROMBIN TIME (PATIENT) 13.6 SEC (9.98-11.88)
[2017-09-09 17:38] LABS: ANION GAP 9 (8-16); BLOOD UREA NITROGEN 10 mg/dL (7-18); CALCIUM 7.4 mg/dL (8.5-10.1); CHLORIDE 103 mmol/L (98-107); CO2 24 mmol/L (21-32); CREATININE 0.7 mg/dL (0.7-1.3); GLUCOSE,RANDOM 140 mg/dL (74-106); POTASSIUM 4.3 mmol/L (3.5-5.1); SODIUM 136 mmol/L (136-145)
--- NOTE | 2017-09-09 17:46 | PN ---
Physical Exam: SUBJECTIVE: Patient seen and examined No acute events overnight. Feels well this morning. Asymptomatic OBJECTIVE: Vital Signs Period Temp Pulse Resp BP Sys/Case Pulse Ox Last 24 Hr 97.5 F-99.3 F 69-111 16-22 101-138/55-75 98-100 GENERAL: The patient is awake, alert, and fully oriented, in no acute distress. HEAD: Normal with no signs of trauma. EYES: PERRL, EOMI, sclera anicteric, conjunctiva clear. No ptosis. ENT: Oropharynx clear without exudates, moist mucous membranes. NECK: Trachea midline, full range of motion, supple. LUNGS: Breath sounds equal, clear to auscultation bilaterally, no wheezes, no crackles, no accessory muscle use. HEART: Regular rate and rhythm, S1, S2 without murmur, rub or gallop. ABDOMEN: Soft, nontender, nondistended, normoactive bowel sounds, no guarding, no rebound, no hepatosplenomegaly, no masses. EXTREMITIES: 2+ pulses, warm, well-perfused, no edema. NEUROLOGICAL: Cranial nerves II through XII grossly intact. Normal speech, gait not observed. PSYCH: Normal mood, normal affect. SKIN: Warm, dry, normal turgor, no rashes or lesions noted Laboratory Results - last 24 hr 09/05/17 09/06/17 09/07/17 16:19 06:00 06:33 Sodium Potassium Chloride Carbon Dioxide Anion Gap BUN Creatinine POC Glucometer 105.91433 Random Glucose Calcium Phosphorus Magnesium Prostate Specific Ag 3.00 3.00 09/09/17 09/09/17 09/09/17 03:41 05:56 06:32 Sodium Potassium Chloride Carbon Dioxide Anion Gap BUN Creatinine POC Glucometer 117 132 Random Glucose Calcium Phosphorus 2.5 Magnesium 1.7 L Prostate Specific Ag 09/09/17 09/09/17 09/09/17 11:37 16:40 16:51 Sodium 136 Potassium 4.3 Chloride 103 Carbon Dioxide 24 Anion Gap 9 BUN 10 D Creatinine 0.7 POC Glucometer 152 163 Random Glucose 140 H D Calcium 7.4 L Phosphorus Magnesium Prostate Specific Ag Active Medications Generic Name Dose Route Start Last Admin Trade Name Freq PRN Reason Stop Dose Admin Apixaban 5 mg 09/07/17 22:00 09/09/17 10:32 Eliquis - PO 5 mg BID KENJI Administration Carvedilol 6.25 mg 09/08/17 12:45 09/09/17 11:11 Coreg - PO 6.25 mg BID KENJI Administration Diltiazem HCl 120 mg 09/08/17 10:00 09/09/17 10:32 Cardizem Cd - PO 120 mg DAILY KENJI Administration Finasteride 5 mg 09/08/17 10:00 09/09/17 10:32 Proscar - PO 5 mg DAILY KENJI Administration Sodium Chloride 1,000 mls @ 75 mls/hr 09/07/17 18:22 09/08/17 22:36 Normal Saline - IV 75 mls/hr ASDIR KENJI Administration CEFTRIAXONE IN IS-OSM DEXTROSE 2 gm in 50 mls @ 100 mls/hr 09/09/17 10:45 10:31 Ceftriaxone 2 Gm-D5w Bag IVPB 100 mls/hr DAILY KENJI Administration Insulin Aspart 1 vial 09/07/17 11:00 09/09/17 17:04 Novolog Vial Sliding Scale - SQ Not Given TIDAC [facility] Protocol Ondansetron HCl 4 mg 09/07/17 18:22 Zofran Injection IVPUSH Q6H PRN NAUSEA AND/OR VOMITING Tamsulosin HCl 0.4 mg 09/08/17 08:30 09/09/17 09:00 Flomax - PO 0.4 mg DAILY@0830 KENJI Administration ASSESSMENT/PLAN: 87 year old M with pmh of HTN, DM, and recent flu presented with septic shock 2/ 2 to UTI and also found to have paroxysmal atrial fibrillation. #Septic shock 2/2 to UTI -Urine growing E. Coli, cephalosporin sensitive -Blood cultures NGTD -Continue Ceftriaxone Day 5 2g daily, will switch to Ceftin 500 mg bid and treat for 14 days. #Paroxysmal Atrial Fibrillation -Currently in sinus rhythm -No events overnight -Continue cardizem CD 120 daily -Echo reviewed, EF 50-55%. No regional wall abnormalities, mild TR/CT, LA mildly dilated, Mild mitral calcification -Continue eliquis 5 mg po bid, [id number] score of 3, will obtain eliquis upon d /c-- copay is ~$180 for eliquis and xarelto. -Continue coreg 6.25 mg bid #Prostate mass -CT pelvis with&without contrast pending to r/o abscess given recent UTI -PSA pending -continue proscar 5 mg daily and flomax 0.4 mg daily #HTN -Hold antihypertensives given recent episode of hypotension -Currently on cardizem CD 120 for Atrial fibrillation -Monitor BP -continue coreg 6.25 mg bid #DM -BGM achs -ISS achs #BPH -continue flomax 0.4 mg po daily #FEN/GI -IVF NS @ 75 cc/hr -monitor BMP -Diabetic Diet #PPx -Eliquis 5 mg po bid #Dispo: Possible DC in AM. Visit type - Emergency Visit Emergency Visit: Yes ED Registration Date: 09/05/17 Care time: The patient presented to the Emergency Department on the above date and was hospitalized for further evaluation of their emergent condition. - New Patient This patient is new to me today: No - Critical Care Critical Care patient: No
--- NOTE | 2017-09-09 18:53 | PN ---
Teaching Attending Note Name of Resident: Michael Merino ATTENDING PHYSICIAN STATEMENT I saw and evaluated the patient. I reviewed the resident's note and discussed the case with the resident. I agree with the resident's findings and plan as documented. SUBJECTIVE: No fever or chills. has no pain , nO SOb, no events overnight OBJECTIVE: NAD, pleasant and cooperative CV: RRR, no MRG Lungs: CTAB Abd: soft, NT, ND , NL BS Ext: no edema ASSESSMENT AND PLAN: 87 y/o man with h/o HTN, DM , recent flu infection who presented not feeling well and was found to have septic shock from UTI. 1- Septic shock /complicated UTI/Pyelo .doing well U cx with E coli, sensitive to CTX - cont ceftriaxone for today , will switch to po tomorrow - blood cx NGTD 2-New onset A fib. now in sinus. - cont cardizem CD 120 - CHADSVASC 3 . 3.2 % risk of stroke /year. cont eliquis ( given 30 day free card ) , has insurance has to pay 180$/a month. - echo reviewed. - TFTs indicate sick euthyroid syndrome .repeat when in normal state of health 3- Dilated CBD on US . no signs or LFTS abn - out pt MRCP 4- Prostatic mass: 4 cm . - CT w/wo contrast pending . - transrectal US will not be helpful after d/w Dr. avina - PSA , although might not be very helpful is pending - cont proscar and flomax 3- HTN: resume coreg. on cardizem. hold rest of home meds 4- DM : SSI -hold metformin possible dc tomorrow
--- NOTE | 2017-09-09 19:45 | PN ---
Progress Note, Physician Chief Complaint: Not in distress History of Present Illness: Patient was seen and examined. Awake and alert. Chart was reviewed Denies chest pain, SOB or palpitations Tolerating therapy - Current Medication List Current Medications: Active Medications Apixaban (Eliquis -) 5 mg PO BID [facility] Last Admin: 09/09/17 10:32 Dose: 5 mg Carvedilol (Coreg -) 6.25 mg PO BID [facility] Last Admin: 09/09/17 11:11 Dose: 6.25 mg Cefuroxime Axetil (Ceftin -) 500 mg PO BID [facility] Diltiazem HCl (Cardizem Cd -) 120 mg PO DAILY [facility] Last Admin: 09/09/17 10:32 Dose: 120 mg Finasteride (Proscar -) 5 mg PO DAILY [facility] Last Admin: 09/09/17 10:32 Dose: 5 mg Insulin Aspart (Novolog Vial Sliding Scale -) 1 vial SQ TIDAC [facility] PRN Reason: Protocol Last Admin: 09/09/17 17:04 Dose: Not Given Ondansetron HCl (Zofran Injection) 4 mg IVPUSH Q6H PRN PRN Reason: NAUSEA AND/OR VOMITING Tamsulosin HCl (Flomax -) 0.4 mg PO DAILY@0830 [facility] Last Admin: 09/09/17 09:00 Dose: 0.4 mg - Objective Vital Signs: Vital Signs Temperature 97.9 F 09/09/17 19:00 Pulse Rate 69 09/09/17 19:00 Respiratory Rate 20 09/09/17 19:00 Blood Pressure 108/59 09/09/17 19:00 O2 Sat by Pulse Oximetry (%) 98 09/09/17 09:00 HENT: Yes: Atraumatic Neck: Yes: Supple Cardiovascular: Yes: Regular Rate and Rhythm, S1, S2 Respiratory: Yes: CTA Bilaterally Gastrointestinal: Yes: Normal Bowel Sounds, Soft. No: Tenderness Edema: No Labs: CBC, BMP 09/07/17 05:50 09/09/17 16:40 INR, PTT INR 1.20 (0.82-1.09) H 09/09/17 16:40 Problem List - Problems (1) Atrial fibrillation Code(s): I48.91 - UNSPECIFIED ATRIAL FIBRILLATION Qualifiers: Atrial fibrillation type: paroxysmal Qualified Code(s): I48.0 - Paroxysmal atrial fibrillation (2) HTN (hypertension) Code(s): I10 - ESSENTIAL (PRIMARY) HYPERTENSION Qualifiers: Hypertension type: essential hypertension Qualified Code(s): I10 - Essential (primary) hypertension (3) Diabetes mellitus Code(s): E11.9 - TYPE 2 DIABETES MELLITUS WITHOUT COMPLICATIONS Qualifiers: Diabetes mellitus type: type 2 Diabetes mellitus snf insulin use: without terminal superintendent use Diabetes mellitus complication status: without complication Qualified Code(s): E11.9 - Type 2 diabetes mellitus without complications (4) BPH associated with nocturia Code(s): N40.1 - BENIGN PROSTATIC HYPERPLASIA WITH LOWER URINARY TRACT SYMP; R35.1 - NOCTURIA (5) Sepsis Code(s): A41.9 - SEPSIS, UNSPECIFIED ORGANISM Qualifiers: Sepsis type: sepsis due to unspecified organism Qualified Code(s): A41.9 - Sepsis, unspecified organism (6) UTI (urinary tract infection) Code(s): N39.0 - URINARY TRACT INFECTION, SITE NOT SPECIFIED Qualifiers: Urinary tract infection type: site unspecified Hematuria presence: without hematuria Qualified Code(s): N39.0 - Urinary tract infection, site not specified Assessment/Plan 1. Paroxysmal atrial fibrillation - now remains in sinus rhythm [id number] score of at least 4 2. UTI/sepsis/ post septic shock 3. Hypertension 4. Borderline type 2 diabetes mellitus 5. BPH 6. Sick euthyroid PLAN: 1. Continue Cardizem CD 120 mg once a day and Carvedilol 6.25 mg BID as tolerated 2. Continue Eliquis 5 mg BID as tolerated 3. Transthoracic echocardiography reviewed 4. Continue supportive care Further plans are to follow. Grzegorz Wong MD
[2017-09-10] MEDS: INSULIN SLIDING SCALE (NOVOLOG) 1 VIAL SQ SCH ×2 (06:28→11:31)
[2017-09-10] MEDS ORDERED: PT OWN MED DRAWER 7, Y5N ONE (08:58)
[2017-09-10] MEDS: TAMSULOSIN HCL 0.4 MG CAP.ER.24H (FP) PO SCH (09:00)
[2017-09-10 09:03] VITALS: BP 120/68; PULSE 100; TEMP 98
[2017-09-10] MEDS: CARVEDILOL 6.25 MG TABLET (FP) PO SCH (09:07)
[2017-09-10] MEDS: FINASTERIDE 5 MG TABLET (FP) PO SCH (09:07)
[2017-09-10] MEDS: APIXABAN 5 MG TABLET PO SCH (09:07)
[2017-09-10] MEDS ORDERED: CEFUROXIME AXETIL 500 MG TABLET PO SCH (10:00)
[2017-09-10] MEDS ORDERED: INSULIN (NOVOLOG) ASPART 100 UNITS/ML 10ML VIAL ONE (11:29)
--- NOTE | 2017-09-10 14:01 | DS ---
Physical Exam: SUBJECTIVE: Patient seen and examined with the resident. Patient will follow up with on Friday, the appointment is made. CT result of abdomen and pelvis consistent with several rim containing fluid collection, the most prominent is around 5x3.7x3cm within the prostate gland consistent with abscess. is aware will see the patient in his office on Friday, appointment is made, patient is being discharged with 10 more days of oral Ceftin 500mg po bid. Also 1.7x 0.7 cm in diameter seen along the right lateral border of urinary bladder. LABS Laboratory Results - last 24 hr 09/09/17 09/09/17 09/09/17 16:40 16:40 16:51 PT with INR 13.60 H INR 1.20 H Sodium 136 Potassium 4.3 Chloride 103 Carbon Dioxide 24 Anion Gap 9 BUN 10 D Creatinine 0.7 POC Glucometer 163 Random Glucose 140 H D Calcium 7.4 L 09/10/17 09/10/17 06:28 11:01 PT with INR INR Sodium Potassium Chloride Carbon Dioxide Anion Gap BUN Creatinine POC Glucometer 116 207 Random Glucose Calcium Home Medications Medication Instructions Recorded Carvedilol 6.25 mg PO BID 09/04/17 Omeprazole 20 mg PO DAILY 09/04/17 Cefuroxime Axetil [Ceftin -] 500 mg PO Q12H #18 tablet 09/09/17 Diltiazem Cd [Cardizem Cd -] 120 mg PO DAILY #30 cap.cd.24h 09/09/17 Finasteride [Proscar -] 5 mg PO DAILY #30 tablet 09/09/17 Sitagliptin Phosphate [Januvia] 50 mg PO DAILY #30 tablet 09/09/17 Tamsulosin HCl [Flomax -] 0.4 mg PO DAILY@0830 #30 cap.er.24h 09/09/17 <Gaby Nolan - Last Filed: 09/10/17 14:28> Physical Exam: Selected Entries 09/04/17 09/04/17 09/04/17 14:33 18:35 22:30 Temperature 103 F H 101.2 F H Pulse Rate 86 Blood Pressure 84/54 62/46 O2 Sat by Pulse Oximetry (%) Oxygen Delivery Method 09/04/17 09/05/17 09/05/17 22:45 06:00 22:00 Temperature Pulse Rate 98 H 94 H Blood Pressure 80/42 O2 Sat by Pulse Oximetry (%) Oxygen Delivery Method 09/06/17 09/10/17 09/10/17 06:00 09:00 09:01 Temperature 98.0 F Pulse Rate 104 H 100 H Blood Pressure 120/68 O2 Sat by Pulse 97 Oximetry (%) Oxygen Delivery Room Air Method Laboratory Tests 09/04/17 09/04/17 09/04/17 16:10 16:20 21:45 WBC 11.6 H 12.4 H Hgb Hct Plt Count Sodium Potassium Chloride Carbon Dioxide Anion Gap BUN Creatinine Random Glucose Urine Protein 1+ H Urine Blood 3+ H Ur Leukocyte Esterase 2+ H Urine RBC 40-60 Urine WBC 40-60 Urine Bacteria Moderate 09/07/17 09/09/17 05:50 16:40 WBC 6.1 Hgb 8.9 L Hct 25.9 L Plt Count 147 Sodium 136 Potassium 4.3 Chloride 103 Carbon Dioxide 24 Anion Gap 9 BUN 10 D Creatinine 0.7 Random Glucose 140 H D Urine Protein Urine Blood Ur Leukocyte Esterase Urine RBC Urine WBC Urine Bacteria Laboratory Tests 09/06/17 09/06/17 10:16 15:28 TSH 1.26 Free T4 1.48 H Free T3 1.2 L Microbiology 09/04/17 16:20 Urine - Urine - Catheterized Urine Culture - Final Escherichia Coli 09/04/17 16:10 Blood - Peripheral Venous Blood Culture - Final NO GROWTH AFTER 5 DAYS INCUBATION 09/04/17 16:10 Blood - Peripheral Venous Blood Culture - Final NO GROWTH AFTER 5 DAYS INCUBATION Microbiology 09/04/17 16:20 Urine - Urine - Catheterized Urine Culture - Final Escherichia Coli 09/04/17 16:10 Blood - Peripheral Venous Blood Culture - Final NO GROWTH AFTER 5 DAYS INCUBATION 09/04/17 16:10 Blood - Peripheral Venous Blood Culture - Final NO GROWTH AFTER 5 DAYS INCUBATION CXR- Small focal opacity in the left lung bases presumably atelectasis. No evidence of airspace consolidation, pulmonary vascular congestion or pleural effusion. Renal/Bladder U/s- Dee catheter within a decompressed urinary bladder significantly limiting its evaluation. Significantly enlarged prostate gland with a volume of 115 cc and with a focal low-attenuation density in its center measuring 4 cm that may be post op. Correlate clinically to determine further evaluation. Correlation with MRI could be obtained for further evaluation. U/s limited- Mild hepatomegaly with a slightly dense echotexture suggestive of mild fatty infiltration versus hepatocellular disease. Multiple gallstones with the largest measuring 2 cm and minimal thickening of its wall measuring 4 mm. No pericholecystic free fluid is present. Correlate for further evaluation. Considering the patient's age, there is borderline to mild dilatation of the common bile duct measuring 8.5 mm. 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 Several rim-enhancing fluid collections the most prominent measuring approximately 5 x 3.7 x 3 cm are seen within the prostate gland consistent with abscess formation. ECHO: EF-50-55%, LV NORMAL, LVSF NORMAL, E/A REVERSAL CONSISTENT WITH BUT NOT DIAGNOSTIC OF POOR LV COMPLIANCE, NO REGIONAL WALL MOTION ABNORMALITY HOSPITAL COURSE: Date of Admission:09/05/17 Date of Discharge: 09/10/17 87 year old M with pmh of DM, HTN, CAD, and BPH who presented with urinary frequency and inability to void. Patient found to be hypotensive outpatient at his PCP's office and brought to the ER. Patient admitted to the ICU for septic shock 2/2 to UTI with a fever of 103. Patient required vasopressors x 1 day and was treated with ceftriaxone for 5 days. Blood cultures were negative and urine cultures grew E. Coli, cephalosporin sensitive. Patient switched to ceftin 500 mg bid and will continue for 10 more days outpatient. In addition, patient went into paroxysmal atrial fibrillation during this admission. He was started on a cardizem drip and then started on 30 q6h. Patient 's rate and rhythm were controlled and he was switched to cardizem cd 120 mg, which he will continue outpatient. Patient also anticoagulated with eliquis 5 mg po bid due to his chadsvasc of 3. Echocardiogram was performed, which revealed an EF of 50-55%. Furthermore, patient found to have prostate mass on pelvic ultrasound. CT pelvis done, which found multiple pelvic abscesses. Patient will follow up with Dr. Lin on Friday 09/15 @ 1:45 for further evaluation. Case discussed with him. He will continue abx for 10 more days. Patient also started on proscar/ flomax by urology for BPH. Patient was switched upon discharge from metformin to januvia 50 mg given his age and side effects. Patient's free T4 was elevated during admission. TSH was wnl. He will need repeat TFT's in 3 weeks. Minutes to complete discharge: 45 <Michael Merino - Last Filed: 09/10/17 16:37> Discharge Summary - Home Medications Comprehensive Discharge Medication List: Ambulatory Orders Carvedilol 6.25 mg PO BID 09/04/17 Omeprazole 20 mg PO DAILY 09/04/17 Cefuroxime Axetil [Ceftin -] 500 mg PO Q12H #18 tablet 09/09/17 Diltiazem Cd [Cardizem Cd -] 120 mg PO DAILY #30 cap.cd.24h 09/09/17 Finasteride [Proscar -] 5 mg PO DAILY #30 tablet 09/09/17 Sitagliptin Phosphate [Januvia] 50 mg PO DAILY #30 tablet 09/09/17 Tamsulosin HCl [Flomax -] 0.4 mg PO DAILY@0830 #30 cap.er.24h 09/09/17 <Gaby Nolan - Last Filed: 09/10/17 14:28> Reason For Visit: UTI/ WEAKNESS FLU SYMTOMS VOMITED ONCE - Home Medications Comprehensive Discharge Medication List: Ambulatory Orders Carvedilol 6.25 mg PO BID 09/04/17 Omeprazole 20 mg PO DAILY 09/04/17 Cefuroxime Axetil [Ceftin -] 500 mg PO Q12H #18 tablet 09/09/17 Diltiazem Cd [Cardizem Cd -] 120 mg PO DAILY #30 cap.cd.24h 09/09/17 Finasteride [Proscar -] 5 mg PO DAILY #30 tablet 09/09/17 Sitagliptin Phosphate [Januvia] 50 mg PO DAILY #30 tablet 09/09/17 Tamsulosin HCl [Flomax -] 0.4 mg PO DAILY@0830 #30 cap.er.24h 09/09/17 <Michael Merino - Last Filed: 09/10/17 16:37> Condition: Improved - Instructions Diet, Activity, Other Instructions: -You were in the hospital due to a severe urine infection, which you were being treated for with IV antibiotics. -While in the hospital you had an abnormal heart rate/rhythm, called atrial fibrillation. You have been placed on a blood thinner and a medication to control your heart rate. -You also had a mass on your prostate that was found on ultrasound. Medical Recommendations: 1. Start taking Ceftin 500 mg two times per day for 9 more days (start 09/10) 2. Continue taking cardizem CD 120 daily. You were started on this medication in the hospital. 3. Continue taking coreg 6.25 mg two times per day. 4. Continue taking eliquis 5 mg by mouth two times per day. You have been given a card for 30 day free trial. Make sure to call the number on the card. 5. Do not take your amlodipine and valsartan/HCTZ 6. Start taking Finasteride 5 mg daily and flomax 0.4 mg daily Referrals: 1. Please follow up with your primary care provider within 1 week. 3. Please follow up with your pipe liner within 1 week. 3. Please follow up with your urologist ON 09/15 AT 1:45 REGARDING THE PROSTATE ABSCESS. If you have chest pain, shortness of breath, or any new/worsening symptoms please come back to the hospital immediately. - you need repeat thyroid function tests in 3 weks. - you need MRCP ( MRI for your abdomen ) to evaluate dilated biliary ducts . please follow with PCP and GI ( Marilee ) for this - you can't use metformin right after IV dye , but also at your advanced age , it might give bad side effects. stop metformin and start using januvia 50 mg daily . Please follow with your PCP for this Referrals: Sen Lin MD [Staff Physician] - 09/15/17 1:45 pm Amos Grijalva MD [Staff Physician] - 1 Week Osmin Hunt MD [Staff Physician] - Jose Manuel Taylor MD [Staff Physician] - 1 Week Disposition: VNS/HOME HEALTH CARE This patient is new to me today: No Emergency Visit: Yes ED Registration Date: 09/05/17 Care time: The patient presented to the Emergency Department on the above date and was hospitalized for further evaluation of their emergent condition. Critical Care patient: No - Discharge Referral Referred to [facility] Med [facility] No <Michael Merino - Last Filed: 09/10/17 16:37>
== END 2017-09-10 13:00 | disposition home health service (06) | DRG 871 ==
LOC: FER 14:32 → JICU 09-05 02:30 → J2W 09-07 18:31 → J5S 09-08 13:57
PROVIDERS: ADMIT Internal Medicine; ATTEND Internal Medicine
PROC: 02HV33Z Insertion of Infusion Device into Superior Vena Cava, Percutaneous Approach (ICD-10-PCS; principal; 2017-09-04)
PROC: B548ZZA Ultrasonography of Superior Vena Cava, Guidance (ICD-10-PCS; 2017-09-04)
DX: A41.9 Sepsis, unspecified organism (principal); R65.21 Severe sepsis with septic shock; N39.0 Urinary tract infection, site not specified; E87.1 Hypo-osmolality and hyponatremia; N41.2 Abscess of prostate; I10 Essential (primary) hypertension; E11.9 Type 2 diabetes mellitus without complications; Z79.84 Long term (current) use of oral hypoglycemic drugs; I25.10 Atherosclerotic heart disease of native coronary artery without angina pectoris; N28.1 Cyst of kidney, acquired; N40.1 Benign prostatic hyperplasia with lower urinary tract symptoms; R35.1 Nocturia; N32.9 Bladder disorder, unspecified; I48.0 Paroxysmal atrial fibrillation; E03.9 Hypothyroidism, unspecified; K83.8 Other specified diseases of biliary tract; B96.20 Unspecified Escherichia coli [E. coli] as the cause of diseases classified elsewhere; R16.0 Hepatomegaly, not elsewhere classified
CPT/HCPCS: 36415; 71045-TC-FY; 72194-TC; 76705-TC; 76775-TC; 76856-TC; 80048; 80053; 81003; 81015; 82803; 82962; 83605; 83735; 84100; 84132; 84153; 84295; 84439; 84443; 84481; 84484; 85025; 85027; 85610; 85730; 87040; 87086; 87186; 93005; 93010; 93306-TC; 97116-GP; 99285-25; J0131; J1644; J7030

== ENCOUNTER 2020-07-07 09:11 | Inpatient (IN) | payer BC, OTHER ==
[2020-07-07 10:35] LABS: BASO % 0.2 % (0-2.0); HEMATOCRIT 38.8 % (35.4-49); HEMOGLOBIN 12.9 GM/dL (11.7-16.9); LYMPH % 9.7 % (8-40); MCHC 33.1 g/dl (32.0-35.9); MEAN CELL VOLUME 87.6 fl (80-96); MEAN PLT VOLUME 9.4 fl (7.5-11.1); MONO % 6.8 % (3.8-10.2); NEUT % 83.3 % (42.8-82.8); PLATELET COUNT 204 K/MM3 (134-434); RBC 4.43 M/mm3 (4.00-5.60); RDW 14.3 % (11.9-15.9); WHITE BLOOD COUNT 7.3 K/mm3 (4.0-10.0)
[2020-07-07 11:00] LABS: CALCIUM 8.1 mg/dL (8.5-10.1)
[2020-07-07 11:01] LABS: ALBUMIN 3.1 g/dl (3.4-5.0); BLOOD UREA NITROGEN 45.1 mg/dL (7-18)
[2020-07-07 11:04] LABS: CREATININE 1.8 mg/dL (0.55-1.3)
[2020-07-07 11:06] LABS: BILIRUBIN,TOTAL 0.7 mg/dL (0.2-1); TOT PROT 8.2 g/dl (6.4-8.2)
[2020-07-07] MEDS ORDERED: DEXAMETHASONE SOD PHOSPHATE 10 MG/1 ML VIAL IVPUSH ONE (13:13)
[2020-07-07] MEDS ORDERED: SODIUM CHLORIDE 500 ML IV SCH (13:30)
[2020-07-07] MEDS ORDERED: ALBUTEROL SO4 HFA INHALER IH PRN (13:46)
[2020-07-07] MEDS ORDERED: DEXAMETHASONE SOD PHOSPHATE 4 MG/1 ML VIAL ONE (13:56)
[2020-07-07] MEDS ORDERED: ASCORBIC ACID 500 MG TABLET (FP) ONE ×2 (14:53→21:34)
[2020-07-07] MEDS ORDERED: ZINC SULFATE 220 MG CAPSULE (FP) ONE (14:54)
[2020-07-07] MEDS ORDERED: ENOXAPARIN NA (PORCINE) 40 MG/0.4 ML DISP.SYRIN SQ ONE (14:54)
[2020-07-07] MEDS ORDERED: CHOLECALCIFEROL (VIT D3) 1,000 UNIT (25 MCG) TABLET ONE (14:54)
[2020-07-07] MEDS: ENOXAPARIN NA (PORCINE) 40 MG/0.4 ML DISP.SYRIN SQ SCH (15:07)
[2020-07-07] MEDS: ZINC SULFATE 220 MG CAPSULE (FP) PO SCH (15:08)
[2020-07-07] MEDS: ASCORBIC ACID 500 MG TABLET (FP) PO SCH ×2 (15:08→21:49)
[2020-07-07] MEDS: CHOLECALCIFEROL (VIT D3) 400 UNIT (10 MCG) TABLET PO SCH (15:08)
[2020-07-07] MEDS: INSULIN SLIDING SCALE (NOVOLOG) 1 VIAL SQ SCH ×2 (17:04→21:49)
[2020-07-07] MEDS ORDERED: CARVEDILOL 3.125 MG TABLET (FP) ONE (21:34)
[2020-07-07] MEDS: CARVEDILOL 6.25 MG TABLET (FP) PO SCH (21:48)
[2020-07-07] MEDS ORDERED: SODIUM CHLORIDE 1,000 ML IV SCH (22:00)
[2020-07-08 03:27] VITALS: BMI 26.8
[2020-07-08] MEDS: INSULIN SLIDING SCALE (NOVOLOG) 1 VIAL SQ SCH ×4 (06:01→21:54)
[2020-07-08] MEDS ORDERED: INSULIN (NOVOLOG) ASPART 100 UNITS/ML 10ML VIAL ONE (06:47)
[2020-07-08 08:29] LABS: HEMOGLOBIN 13.1 GM/dL (11.7-16.9); MCH 29.8 pg (25.7-33.7); MCHC 34.5 g/dl (32.0-35.9); MEAN CELL VOLUME 86.5 fl (80-96); MEAN PLT VOLUME 9.2 fl (7.5-11.1); PLATELET COUNT 240 K/MM3 (134-434); RBC 4.39 M/mm3 (4.00-5.60); RDW 13.8 % (11.9-15.9); WHITE BLOOD COUNT 8.7 K/mm3 (4.0-10.0)
[2020-07-08 08:34] LABS: CALCIUM 7.8 mg/dL (8.5-10.1)
[2020-07-08 08:35] LABS: ALBUMIN 2.7 g/dl (3.4-5.0); BLOOD UREA NITROGEN 55.1 mg/dL (7-18); MAGNESIUM 2.1 mg/dL (1.8-2.4)
[2020-07-08 08:36] LABS: CREATININE 1.9 mg/dL (0.55-1.3)
[2020-07-08 08:37] LABS: PHOSPHOROUS 2.7 mg/dL (2.5-4.9)
[2020-07-08 08:38] LABS: BILIRUBIN,TOTAL 1.8 mg/dL (0.2-1); TOT PROT 7.6 g/dl (6.4-8.2)
[2020-07-08] MEDS ORDERED: SODIUM CHLORIDE 250 ML IV STA (08:57)
[2020-07-08] MEDS ORDERED: POTASSIUM CHLORIDE TABS 20 MEQ TABLET.ER (FP) PO ONE ×2 (08:58→15:00)
[2020-07-08] MEDS ORDERED: amLODIPine BESYLATE 10 MG TABLET (FP) PO SCH (10:00)
[2020-07-08] MEDS: CHOLECALCIFEROL (VIT D3) 400 UNIT (10 MCG) TABLET PO SCH (10:48)
[2020-07-08] MEDS: CARVEDILOL 6.25 MG TABLET (FP) PO SCH (10:48)
[2020-07-08] MEDS: ASCORBIC ACID 500 MG TABLET (FP) PO SCH ×2 (10:48→21:42)
[2020-07-08] MEDS: ENOXAPARIN NA (PORCINE) 40 MG/0.4 ML DISP.SYRIN SQ SCH (10:48)
[2020-07-08] MEDS: TAMSULOSIN HCL 0.4 MG CAP PO SCH (10:48)
[2020-07-08] MEDS: ZINC SULFATE 220 MG CAPSULE (FP) PO SCH (10:49)
[2020-07-08] MEDS: DEXAMETHASONE SOD PHOSPHATE 4 MG/1 ML VIAL IVPUSH SCH (10:49)
[2020-07-08] MEDS ORDERED: SODIUM CHLORIDE 1,000 ML IV SCH (17:00)
[2020-07-08 20:38] LABS: EPI CELLS 1 /uL (0-25.1); HYALINE CASTS 1 /uL (0-3.1); PH,URINE 5.5 (5.0-8.0); URINE APPEARANCE CLOUDY; URINE BACTERIA >9,000 /uL (0-1359); URINE BILIRUBIN NEGATIVE (NEGATIVE); URINE COLOR YELLOW; URINE GLUCOSE (UA) NEGATIVE (NEGATIVE); URINE KETONE NEGATIVE (NEGATIVE); URINE LEUK ESTERASE 2+ (NEGATIVE); URINE NITRITE NEGATIVE (NEGATIVE); URINE PROTEIN 2+ (NEGATIVE); URINE RBC 48 /uL (0-23.9); URINE UROBILINOGEN 0.2 mg/dL (0.2-1.0); URINE WBC 1477 /uL (0-25.8)
[2020-07-09] MEDS: INSULIN SLIDING SCALE (NOVOLOG) 1 VIAL SQ SCH ×4 (06:22→21:38)
[2020-07-09 08:01] LABS: CALCIUM 7.6 mg/dL (8.5-10.1)
[2020-07-09 08:02] LABS: BLOOD UREA NITROGEN 44.3 mg/dL (7-18)
[2020-07-09 08:05] LABS: CREATININE 1.3 mg/dL (0.55-1.3)
[2020-07-09] MEDS: HEPARIN NA (PORCINE) 5,000 UNITS/ML 1ML VIAL SQ SCH ×3 (09:39→21:25)
[2020-07-09] MEDS: TAMSULOSIN HCL 0.4 MG CAP PO SCH (09:39)
[2020-07-09] MEDS: ZINC SULFATE 220 MG CAPSULE (FP) PO SCH (09:39)
[2020-07-09] MEDS: CHOLECALCIFEROL (VIT D3) 400 UNIT (10 MCG) TABLET PO SCH (09:39)
[2020-07-09] MEDS: ASCORBIC ACID 500 MG TABLET (FP) PO SCH ×2 (09:39→21:25)
[2020-07-09] MEDS: DEXAMETHASONE SOD PHOSPHATE 4 MG/1 ML VIAL IVPUSH SCH (09:39)
[2020-07-09] MEDS ORDERED: SODIUM CHLORIDE 1,000 ML IV SCH (14:30)
[2020-07-09] MEDS ORDERED: DEXTROSE 5%-WATER - 50 ML IVPB ONE (16:42)
[2020-07-09] MEDS ORDERED: cefTRIAXone SODIUM 1 GM VIAL ONE (16:42)
[2020-07-09] MEDS: CEFTRIAXONE 1 GM in DEXTROSE 5%-WATER - 50 ML IVPB SCH (16:46)
[2020-07-09] MEDS ORDERED: BAMLANIVIMAB 700 MG in SODIUM CHLORIDE 180 ML IVPB ONE (18:00)
[2020-07-09] MEDS: NYSTATIN 100,000 UNIT/GM TOPICAL CREAM 15 GM TUBE TP SCH (21:24)
[2020-07-10] MEDS: HEPARIN NA (PORCINE) 5,000 UNITS/ML 1ML VIAL SQ SCH ×3 (05:25→21:17)
[2020-07-10] MEDS: INSULIN SLIDING SCALE (NOVOLOG) 1 VIAL SQ SCH ×4 (06:04→21:17)
[2020-07-10 08:57] LABS: ALBUMIN 2.1 g/dl (3.4-5.0); BLOOD UREA NITROGEN 32.5 mg/dL (7-18); CALCIUM 7.3 mg/dL (8.5-10.1)
[2020-07-10 09:00] LABS: CREATININE 1.1 mg/dL (0.55-1.3)
[2020-07-10 09:01] LABS: BILIRUBIN,TOTAL 0.4 mg/dL (0.2-1); TOT PROT 6.4 g/dl (6.4-8.2)
[2020-07-10] MEDS: ASCORBIC ACID 500 MG TABLET (FP) PO SCH ×2 (09:30→21:17)
[2020-07-10] MEDS: TAMSULOSIN HCL 0.4 MG CAP PO SCH (09:30)
[2020-07-10] MEDS: ZINC SULFATE 220 MG CAPSULE (FP) PO SCH (09:30)
[2020-07-10] MEDS: CHOLECALCIFEROL (VIT D3) 400 UNIT (10 MCG) TABLET PO SCH (09:30)
[2020-07-10] MEDS: NYSTATIN 100,000 UNIT/GM TOPICAL CREAM 15 GM TUBE TP SCH ×2 (09:32→21:17)
[2020-07-10] MEDS ORDERED: DEXTROSE 5%-WATER - 50 ML IVPB ONE (15:36)
[2020-07-10] MEDS ORDERED: cefTRIAXone SODIUM 1 GM VIAL ONE (15:36)
[2020-07-10] MEDS: POLYETHYLENE GLYCOL 3350 119 GM BTL PO SCH (15:46)
[2020-07-10] MEDS: CEFTRIAXONE 1 GM in DEXTROSE 5%-WATER - 50 ML IVPB SCH (15:46)
[2020-07-10] MEDS ORDERED: INSULIN (NOVOLOG) ASPART 100 UNITS/ML 10ML VIAL ONE (20:32)
[2020-07-10] MEDS: SODIUM CHLORIDE 1,000 ML IV SCH (20:37)
[2020-07-11] MEDS ORDERED: PT OWN MED DRAWER 7, Y5N ONE (05:56)
[2020-07-11] MEDS: HEPARIN NA (PORCINE) 5,000 UNITS/ML 1ML VIAL SQ SCH ×2 (06:04→15:31)
[2020-07-11] MEDS: INSULIN SLIDING SCALE (NOVOLOG) 1 VIAL SQ SCH ×3 (06:04→17:24)
[2020-07-11 08:53] LABS: HEMATOCRIT 37.3 % (35.4-49); HEMOGLOBIN 12.5 GM/dL (11.7-16.9); MCH 29.1 pg (25.7-33.7); MCHC 33.5 g/dl (32.0-35.9); MEAN PLT VOLUME 9.5 fl (7.5-11.1); PLATELET COUNT 215 K/MM3 (134-434); RBC 4.29 M/mm3 (4.00-5.60); WHITE BLOOD COUNT 5.7 K/mm3 (4.0-10.0)
[2020-07-11 09:04] LABS: ALBUMIN 2.1 g/dl (3.4-5.0); BLOOD UREA NITROGEN 33.1 mg/dL (7-18); CALCIUM 7.2 mg/dL (8.5-10.1)
[2020-07-11 09:05] LABS: MAGNESIUM 1.9 mg/dL (1.8-2.4)
[2020-07-11 09:07] LABS: CREATININE 1.2 mg/dL (0.55-1.3)
[2020-07-11 09:08] LABS: PHOSPHOROUS 2.5 mg/dL (2.5-4.9)
[2020-07-11 09:09] LABS: BILIRUBIN,TOTAL 0.5 mg/dL (0.2-1); TOT PROT 6.1 g/dl (6.4-8.2)
[2020-07-11] MEDS: POLYETHYLENE GLYCOL 3350 119 GM BTL PO SCH (09:44)
[2020-07-11] MEDS: ASCORBIC ACID 500 MG TABLET (FP) PO SCH (09:47)
[2020-07-11] MEDS: CHOLECALCIFEROL (VIT D3) 400 UNIT (10 MCG) TABLET PO SCH (09:48)
[2020-07-11] MEDS: ZINC SULFATE 220 MG CAPSULE (FP) PO SCH (09:48)
[2020-07-11] MEDS: NYSTATIN 100,000 UNIT/GM TOPICAL CREAM 15 GM TUBE TP SCH (09:50)
[2020-07-11] MEDS ORDERED: FAMOTIDINE 20 MG/50 ML IVPB 20 MG/50 ML MG IVPB SCH (10:00)
[2020-07-11 10:08] LABS: ERYTHROCYTE SEDIMENTATION RATE 82 mm/hr (0-20)
[2020-07-11] MEDS: SODIUM CHLORIDE 1,000 ML IV SCH (11:38)
[2020-07-11] MEDS ORDERED: cefTRIAXone SODIUM 1 GM VIAL ONE (14:43)
[2020-07-11] MEDS ORDERED: DEXTROSE 5%-WATER - 50 ML IVPB ONE (14:44)
[2020-07-11] MEDS: CEFTRIAXONE 1 GM in DEXTROSE 5%-WATER - 50 ML IVPB SCH (15:31)
[2020-07-11 16:20] VITALS: BP 137/78; PULSE 92; TEMP 97.6
== END 2020-07-11 18:14 | disposition home health service (06) | DRG 178 ==
LOC: JER 09:11 → JERBED 13:36 → J7W 07-08 01:35
PROVIDERS: ADMIT Internal Medicine; ATTEND Internal Medicine
PROC: XW033H6 Introduction of Other New Technology Monoclonal Antibody into Peripheral Vein, Percutaneous Approach, New Technology Group 6 (ICD-10-PCS; principal; 2020-07-10)
DX: U07.1 COVID-19 (principal); N17.9 Acute kidney failure, unspecified; A08.39 Other viral enteritis; N39.0 Urinary tract infection, site not specified; I10 Essential (primary) hypertension; E78.5 Hyperlipidemia, unspecified; E11.9 Type 2 diabetes mellitus without complications; I48.91 Unspecified atrial fibrillation; I44.0 Atrioventricular block, first degree; N40.0 Benign prostatic hyperplasia without lower urinary tract symptoms; R55 Syncope and collapse; E86.0 Dehydration; E87.6 Hypokalemia
CPT/HCPCS: 36415; 70450-TC; 71045-TC-FY; 72125-TC; 80048; 80053; 81003; 82728; 82962; 83615; 83735; 84100; 84484; 85025; 85027; 85379; 85651; 86140; 87086; 87186; 87426; 93005; 93010; 94761; 97116-GP; 99285-25; J1100; J1644; M0239; Q0239